=== PATIENT | female | born 1975 | race Caucasian/White ===

== ENCOUNTER 2018-05-20 15:58 | Outpatient (REF) | payer BC, SELFPAY ==
--- NOTE | 2018-05-20 15:30 | PAPFT_PTH ---
PATIENT: Sheryl Waldron LOC: [facility] U#:[id number] AGE/SX: 42/F ROOM: RE05/20/[address]: JOSIE Alas : 1975 BED: DIS: 05/20/2018 SPEC #: [id number] RECD: 05/20/18 18:17 STATUS: PETE RERyan #: [id number] MARIA G: 05/20/18 15:[address]: Arlene Farmer DEPT: [facility] Cytology RECD BY: Jina Gibson ENTERED: 05/20/18 18:17 SP TYPE: PAPFT OTHR DR: Lima Bella Tissues: 1 - CX/ENDOCX FOR PAP SMEARS Procedures: PAP THIN PREP/UVM Screening HPV DNA PROBE Comments: [id number]
== END 2018-05-20 16:18 ==
LOC: LBN 15:58
PROVIDERS: PCP Nurse Practitioner Family; Visit Provider Nurse Practitioner Family
DX: Z12.4 Encounter for screening for malignant neoplasm of cervix (principal); Z11.51 Encounter for screening for human papillomavirus (HPV)
CPT/HCPCS: 88142; 87624

== ENCOUNTER 2018-06-10 00:49 | Outpatient (CLI) | payer BC, SELFPAY ==
--- NOTE | 2018-06-10 08:30 | DI.MAMMO_ITS ---
SYMPTOM/DIAGNOSIS: SCREENING, Z12.31 MAMMOGRAMS: Mammograms were interpreted according to the usual protocol including computer analysis with CAD system, tomosynthesis and C view imaging. Comparison is made with prior examinations. Breast density, Category B. No suspicious masses or microcalcifications are seen. There is no definite evidence of malignancy. IMPRESSION: Negative mammogram. Routine screening is recommended. Category 1B. MQSA ASSESSMENT OF FINDINGS: Negative. Category 1. Patient will receive a letter notifying them of these results. BI-RADS category B. There are scattered areas of fibroglandular density.
== END 2018-06-10 01:09 ==
PROVIDERS: PCP Nurse Practitioner Family; Visit Provider Nurse Practitioner Family
DX: Z12.31 Encounter for screening mammogram for malignant neoplasm of breast (principal)
CPT/HCPCS: 77063; 77067

== ENCOUNTER 2019-08-21 14:21 | Emergency (ER) | payer BC, SELFPAY ==
[2019-08-21 14:29] VITALS: BP 118/69; PULSE 79; RESP 20; TEMP 36.8; O2SAT 96
[2019-08-21] MEDS: Balanced Salt Solution 15 ML BTL OP (14:57)
[2019-08-21] MEDS: Fluorescein STRIPS 100/BOX 1 MG OP (14:57)
--- NOTE | 2019-08-21 15:12 | W.ED.GENAD ---
Discharge Plan Disposition Patient Disposition: HOME Discharge Details Chief Complaint: EyeProblem Clinical Impression: Acute conjunctivitis of left eye Primary Care Provider: Lima Bella ED Provider: Marcio Encarnacion Home Meds and New Rx's Prescriptions: New erythromycin 5 mg/gram (0.5 %) ointment 0.5 inch OP QID Qty: 3.5 RF: 0 Continued clotrimazole-betamethasone [Lotrisone] 45 GM cream 15 gm Topical BID Qty: 1 RF: 0 acyclovir [Zovirax] 2 GM cream 2 gm Topical PRN RF: 0 valacyclovir [Valtrex] 500 MG tablet 500 mg PO DAILY RF: 0 citalopram [Celexa] 10 MG tablet 10 mg PO DAILY RF: 0 esomeprazole magnesium [Nexium] 20 MG capsule,delayed release(DR/EC) 20 mg PO DAILY RF: 0 trazodone 50 MG tablet 2 tab PO PRN PRNRF: 0 buspirone 5 MG tablet 5 mg PO DAILY RF: 0 naltrexone 50 MG tablet 50 mg PO DAILY RF: 0 Discharge Instructions Instructions: Conjunctivitis (ED) Additional Instructions: Apply erythromycin eye ointment to left eye: Apply 0.5 inch to left inner lower lid, 4 times a day, for the next 1 week. Please contact your quality assurance coach to arrange follow-up. Call tomorrow to be seen in follow-up early this week. Return to the ER immediately for any worsening or new concerning symptoms. Referrals: [facility] [Provider Group] Medical Decision Making 43-year-old female here with conjunctivitis left eye. Patient does have a history of chronic intermittent HSV and is currently on Valtrex for oral lesion on her lip. 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 No dendritic lesions noted on exam. I will have her continue taking Valtrex and follow-up with ophthalmology. Suspect more likely infectious process versus allergic etiology. I will cover with erythromycin ointment. I discussed my differential diagnosis with the patient and recommended that she follow-up with her quality assurance coach tomorrow. I encouraged to return immediately should she have any worsening or new concerning symptoms. HPI General Mode of arrival: ambulatory. Date/Time Provider Initiated Documentation: 08/21/19 14:30. Limitations to Documentation: no limitations. Information obtained by: patient. HPI Narrative: 43-year-old female presents with chief complaint of eye discomfort. Discomfort is is in her left eye, superior slightly lateral eye. Patient notes she was outside with her dog yesterday playing but does not recall any traumatic injury to her eye. Symptoms started yesterday afternoon and persisted through the evening. This morning she woke up with crusty discharge from her eye. She has no associated facial pain or rash. No visual changes. Patient notes she is currently taking Valtrex for HSV outbreak on her lip. She notes she has this chronic intermittently. Related Data Home Medications Medication Instructions Recorded Confirmed citalopram [Celexa] 10 mg PO DAILY 12/27/12 08/21/19 esomeprazole magnesium [Nexium] 20 mg PO DAILY 12/27/12 08/21/19 clotrimazole-betamethasone 15 gm TOPICAL BID #1 tube 06/10/13 08/21/19 [Lotrisone] acyclovir [Zovirax] 2 gm TOPICAL PRN script 07/08/13 08/21/19 valacyclovir [Valtrex] 500 mg PO DAILY tab-cap 07/08/13 08/21/19 trazodone 2 tab PO PRN PRN 08/19/15 08/21/19 buspirone 5 mg PO DAILY 07/21/17 08/21/19 naltrexone 50 mg PO DAILY 07/21/17 08/21/19 erythromycin 0.5 inch OP QID #3.5 gm 08/21/19 Previous Rx's Medication Instructions Recorded erythromycin 0.5 inch OP QID #3.5 gm 08/21/19 Allergies Allergy/AdvReac Type Severity Reaction Status Date / Time Sulfa (Sulfonamide Allergy Intermediate Hives Verified 08/21/19 14:32 Antibiotics) General Stated Complaint: EyeProblem PHILIP: 4 Review of Systems Constitutional Constitutional: Denies fever(s) Eyes Eyes: Reports as per HPI, Denies blurry vision and Denies itchy eyes Integumentary/Breasts Skin/Breast: Denies rash Allergic/Immunologic Allergic/Immunologic: Denies itchy eyes PFSH Surgical History section Family History Father Heart disease Mother Hypertension Hyperlipidemia Osteoporosis Maternal Aunt Breast cancer 3 maternal aunts Maternal Aunt Ovarian cancer Mat Great aunt Paternal Grandfather Colon cancer Social History Smoking/Tobacco Use Status: Never Alcohol Intake: current Alcohol Intake frequency: holidays/special occasions only Drug use: Never Substance use type: does not use Do you feel safe at home: Yes Do you feel safe in your relationship?: Yes Female Reproductive History Menstrual control method: none History History 2 Para 1 Hx # Term Pregnancies Multiple births Hx # Pregnancies Ectopic pregnancies AB induced Hx Number of Living Children AB spontaneous Exam Const General: cooperative and no acute distress HENMT Mouth: moist mucous membranes Eyes Alignment and Position: alignment normal Periorbital: periorbital findings normal Eyelids: eyelids normal Conjunctivae: conjunctival abnormality left conjunctival chemosis and conjunctival injection; without discharge Sclera: normal sclerae Cornea: corneas normal and fluorescein used Pupils: PERRL EOM: EOM intact bilaterally Neck Neck: trachea midline and supple Skin General skin exam: no rashes or lesions noted Neuro General: patient alert, patient awake and tone normal Course Vital Signs Vital signs: Vital Signs Temperature 36.8 C 08/21/19 14:29 Pulse 79 08/21/19 14:29 Respiratory Rate 20 08/21/19 14:29 Blood Pressure 118/69 08/21/19 14:29 Pulse Oximetry 96 08/21/19 14:29 Temperature 36.8 C 08/21/19 14:29 Temperature Source Skin 08/21/19 14:29 Pulse 79 08/21/19 14:29 Respiratory Rate 20 08/21/19 14:29 Respiratory Effort Non-Labored 08/21/19 14:34 Blood Pressure 118/69 08/21/19 14:29 Blood Pressure Position Sitting 08/21/19 14:29 Pulse Oximetry 96 08/21/19 14:29 Oxygen Delivery Method Room Air 08/21/19 14:29 Oxygen Flow Rate 0 08/21/19 14:29 Pain Level 6 08/21/19 14:29
[2019-08-21] MEDS: Erythromycin Ophth Oint 3.5 GM TUBE OP (15:23)
[2019-08-21 15:25] VITALS: BP 118/69; PULSE 79; RESP 20; TEMP 36.8; O2SAT 96
== END 2019-08-21 15:26 | disposition home or self-care (01) ==
PROVIDERS: Emergency Provider Student in an Organized Health Care Education/Training Program
DX: H10.022 Other mucopurulent conjunctivitis, left eye (principal)
CPT/HCPCS: 99283

== ENCOUNTER 2019-12-06 16:03 | Observation (INO) | payer BC, SELFPAY ==
[2019-12-06] VITALS (40 sets, daily range): BP systolic 103–135; BP diastolic 60–99; PULSE 65–168; RESP 13–23; TEMP 36.8–37.1; O2SAT 97–100
--- NOTE | 2019-12-06 16:51 | DI.CT_ITS ---
EXAM: CT THORAX ABD/PEL CTA CLINICAL HISTORY: pain in chest and back. TECHNIQUE: Imaging Protocol: Axial CT angiography was performed with multi-slice acquisition and m ulti-planar and/or 3D reconstructions. CONTRAST MATERIAL: Intravenous: Omnipaque 350 Contrast volume:100 mL Oral: No COMPARISON: CT CTA CHEST AND ABD WITHOUT AND WITH from 10/01/2017 FINDINGS: CHEST: Pulmonary Arteries: No evidence of filling defect to suggest pulmonary emboli. However, the study was not tailored to evaluate the pulmonary arteries. Tracheobronchial tree: Patent where visualized. Mediastinum and [place]: No dominant adenopathy or fluid collection. Small hiatal hernia. Pulmonary parenchyma: No consolidation or dominant measurable mass. No architectural distortion. Pleura: No effusion or pneumothorax. Heart: The heart is not dilated. No coronary artery calcifications are seen. No pericardial effusion. Aorta: Thoracic aorta non-dilated. No aneurysm or dissection. Bones: Degenerative changes seen in the thoracic spine.No acute abnormality. ABDOMEN AND PELVIS: Abdomen: Celiac [place]/SMA: No evidence of occlusion or significant stenosis. Renal Arteries: No evidence of occlusion or significant stenosis. There is a single renal artery per fusing each kidney. Aorta: No aneurysm. No dissection. No evidence of occlusion or significant stenosis. Pelvis: Iliac Arteries: No evidence of occlusion or significant stenosis. Common Femoral Arteries: No evidence of occlusion or significant stenosis. ABDOMEN: Liver: Normal density. No measurable mass. Portal, Superior Mesenteric, and Splenic Veins: Unremarkable. Gallbladder and Biliary Tract: No radiodense calculus or dilation. Pancreas: Normal density, no abnormal calcifications or inflammatory process. Spleen: Normal. Adrenals: No masses seen. Kidneys: Normal size, contour and axis. No radiodense stones or obstructive uropathy. No masses seen. Bowel: No obstruction or bowel wall thickening. Appendix is unremarkable. Colonic diverticulosis but no evidence of acute diverticulitis. Peritoneal Cavity: No ascites, collection or mesenteric inflammatory response. Lymph Nodes: Within normal limits. Bones: Degenerative changes seen in the lumbar spine. Soft Tissues: Unremarkable. PELVIS: Bladder: Symmetric distention, no gross wall thickening. Reproductive Organs: Unremarkable as visualized. Lymph Nodes: Within normal limits. Bones: Degenerative changes seen in the lumbar spine. No acute abnormality. IMPRESSION: Normal CT Angiogram of the chest, abdomen and pelvis. RADIATION DOSE DELIVERED: Total DLP DATA REPOSITORY: All CT scans at this facility are submitted to the National Radiology Data Registry (NRDR) Dose Index Registry (DIR) with the [employer] (ACR). RADIATION OPTIMIZATION: All CT scans at this facility use at least one of these dose optimization te chniques: automated exposure control; mA and/or kV adjustment per patient size (includes targeted exa ms where dose is matched to clinical indication); or iterative reconstruction.
--- NOTE | 2019-12-06 16:52 | ED.GENADUL_ITS ---
Discharge Plan Disposition Condition: Good Discharge Details Chief Complaint: Chest Pain Admit Date/Time: 12/06/19 19:40 Admit Provider: Gonzalo Vargas Attending Provider: Gonzalo Vargas Primary Care Provider: Mahesh Sanford ED Provider: Marcio Encarnacion Discharge Instructions Activity:: Activity as Tolerated Equipment/Supplies:: No Equipment Needed Diet:: As Tolerated Discharge Orders Discharge Orders: Discharge Order (Routine); Ordered 12/07/19 Ordered By: James Mae Discharge Data Discharge Date/Time-TO BE ENTERED AT DEPARTURE: 12/06/19 20:10 Medical Decision Making 1655??44-year-old female here with episode of chest pain that occurred about 1 hour ago and now resolved. She does have persistent upper back pain. Consider ACS. Screening ECG was reviewed and interpreted by me: Sinus rhythm 73 bpm, normal axis, no STEMI, nondiagnostic. Plan to check troponin. Consider acute life-threatening thoracic aortic dissection. Plan to obtain CTA of the chest. Plan to observe patient closely and maintain cardiac monitoring. 19:00 --CTA chest was interpreted by radiology: IMPRESSION: No acute findings CT of the abdomen and pelvis was interpreted by radiology: IMPRESSION: Unremarkable CTA. Initial troponin negative. Patient was reassessed and she continues to have i ntermittent brief less than 1 minute episodes of substernal chest discomfort that radiates to her back. Given family history, obesity, and continued symptoms, plan will be to hospitalize for repeat labs and cardiac monitoring overnight. HPI General Mode of arrival: ambulatory . Date/Time Provider Initiated Documentation: 12/06/19 16:31 . Limitations to Documentation: no limitations . Information obtained by: patient . HPI Narrative: 44-year-old female with history of anxiety and depression presents with chief complaint of chest pain. Patient notes that she developed a knot in her back yesterday which has persisted. She attributed this to overuse and musculoskeletal pain. Today about an hour ago, she developed sudden onset chest pain described as a sharp pressure and localized to retro-sternal and rated 9/10. Pain lasted approximately 10 minutes. Pain radiated into her left neck. Pain has since resolved. She continues to have discomfort in her left upper back. Patient also notes intermittent brief episodes of chest pain a few times a week over the past 1 to 2 months that occur at rest and last approximately 1 minute. Related Data Home Medications Medication Instructions Recorded Confirmed citalopram [Celexa] 10 mg PO DAILY 12/27/12 12/06/19 esomeprazole magnesium [Nexium] 20 mg PO DAILY 12/27/12 12/06/19 acyclovir [Zovirax] 2 gm TOPICAL PRN script 07/08/13 12/06/19 valacyclovir [Valtrex] 500 mg PO DAILY tab-cap 07/08/13 12/06/19 trazodone 2 tab PO PRN PRN 08/19/15 12/06/19 naltrexone 50 mg PO DAILY 07/21/17 12/06/19 methocarbamol 1,500 mg PO QID PRN #10 tab 12/07/19 Previous Rx's Medication Instructions Recorded methocarbamol 1,500 mg PO QID PRN #10 tab 12/07/19 Allergies Allergy/AdvReac Type Severity Reaction Status Date / Time Sulfa (Sulfonamide Allergy Intermediate Hives Verified 12/06/19 16:13 Antibiotics) General Stated Complaint: Chest Pain PHILIP: 2 Review of Systems All systems reviewed & are unremarkable except as noted in HPI and below Constitutional Constitutional: Denies fever(s) Cardiovascular Cardiovascular: Reports as per HPI and Denies dyspnea Respiratory Respiratory: Denies dyspnea PFSH Medical History History of alcoholism (Acute) History of depression (Acute) History of gastroesophageal reflux (GERD) (Acute) Surgical History Foot fracture, right (Acute) History of (Chronic) History of esophagogastroduodenoscopy (EGD) (Chronic) Status post colonoscopy (Acute) Family History Father Heart disease Mother Hypertension Hyperlipidemia Osteoporosis Maternal Aunt Breast cancer 3 maternal aunts Maternal Aunt Ovarian cancer Mat Great aunt Paternal Grandfather Colon cancer Social History Smoking/Tobacco Use Status: Former Tobacco Use Tobacco: How many years used: 12 Alcohol Intake: current Alcohol Intake frequency: a few times a week Details: Former history of alcoholism. Previously drank 2-3 bottles of wine per day Drug use: Never Substance use type: does not use Number of Children: 2 What is your relationship status?: Panel score (0-1 are the most socially isolated patients): 0 Do you feel safe at home: Yes Do you feel safe in your relationship?: Yes Additional Social history: she has one biological child (son) and one adopted child (disabled daughter) Female Reproductive History Menstrual control method: none History History 3 Para 1 Hx # Term Pregnancies 1 Multiple births Hx # Pregnancies Ectopic pregnancies AB induced Hx Number of Living Children 2 AB spontaneous 2 Exam Const General: cooperative HENMT Mouth: moist mucous membranes Eyes Conjunctivae: normal conjunctivae Sclera: normal sclerae Neck Neck: trachea midline and supple Resp Auscultation: clear to auscultation bilaterally, no rales, no rhonchi and no wheezes Cardio Jugular venous pressure: no JVD Rate: regular rate and not tachycardic Rhythm: regular rhythm GI Palpation: soft, not firm, no guarding, no masses, not rigid and nontender Skin General skin exam: no rashes or lesions noted Neuro General: patient alert, patient awake, patient oriented x3 and tone normal Extrem General: no edema Psych Appearance: grossly normal Mental Status: mental status grossly normal Course Vital Signs Vital signs: Vital Signs Temperature 36.8 C 12/06/19 16:09 Pulse 74 12/06/19 16:09 Respiratory Rate 16 12/06/19 16:09 Blood Pressure 126/68 12/06/19 16:09 Pulse Oximetry 100 12/06/19 16:09 Temperature 36.8 C 12/06/19 16:09 Temperature Source Temporal Artery Scan 12/06/19 16:09 Pulse 81 12/06/19 16:34 Pulse 79 12/06/19 16:34 Respiratory Rate 16 12/06/19 16:34 Respiratory Effort Non-Labored 12/06/19 16:12 Blood Pressure 117/89 12/06/19 16:34 Blood Pressure Mean 96 12/06/19 16:34 Blood Pressure Position Supine 12/06/19 16:09 Pulse Oximetry 98 12/06/19 16:34 Oxygen Delivery Method Room Air 12/06/19 16:09 Oxygen Flow Rate 0 12/06/19 16:09 Pain Level 0 12/06/19 16:09
[2019-12-06] MEDS: ALPRAZolam 0.25 MG TAB PO (16:57)
[2019-12-06 17:06] LABS: Abs Immature Grans 0.01 k/cumm (0.0-0.09); Absolute Basophil Count 0.02 k/cumm (0.0-0.2); Absolute Eosinophil Count 0.16 k/cumm (0.0-0.7); Absolute Lymphocyte Count 2.84 k/cumm (1.2-3.4); Absolute Monocyte Count 0.68 k/cumm (0.11-0.7); Absolute Neutrophil Count 3.58 k/cumm (1.2-6.7); Basophils % 0.3; Eosinophils % 2.2; HCT 40.5 % (36.0-46.0); HGB 13.4 g/dL (12.0-15.5); Immature Grans % 0.1 %; Mean Corp. HGB Concentration 33.1 g/dL (32.0-36.0); Mean Corpuscular Hemoglobin 30.3 pg (27.0-33.0); Mean Corpuscular Volume 91.6 fL (80-95); Mean Platelet Volume 9.8 fL (8.0-11.0); Monocytes % 9.3; Neutrophils % 49.1; Platelet Count 275 x1000/uL (130-400); RBC 4.42 m/cumm (4.00-5.20); RBC Distribution Width 14.3 % (11.7-14.6); White Blood Cell Count 7.29 k/cumm (4.4-10.8)
[2019-12-06 17:21] LABS: ALT 61 U/L (14-59); AST 73 U/L (15-37); Albumin 3.6 g/dL (3.4-5.0); Alkaline Phosphatase 69 U/L (46-116); Anion Gap 6.4 mmol/L (3-11); BUN 10 mg/dL (7-18); Bilirubin, Total 0.4 mg/dL (0.2-1.0); CO2 26.6 mmol/L (21.0-32.0); CREATININE 0.79 mg/dL (0.55-1.02); Calcium 8.6 mg/dL (8.5-10.1); Chloride 104 mmol/L (98-107); Glucose 91 mg/dL (74-106); Potassium 4.8 mmol/L (3.5-5.1); Sodium 137 mmol/L (136-145); Total Protein 7.2 g/dL (6.4-8.2)
[2019-12-06 17:22] LABS: Troponin I < 0.05 ng/mL (<0.06)
[2019-12-06] MEDS: Omnipaque 350 MG/ML 50 ML BTL 100 ML IJ (17:34)
[2019-12-06] MEDS: Normal Saline - Diluent 50 ML VIAL IV (17:35)
--- NOTE | 2019-12-06 18:20 | DI.VRAD_ITS ---
PROCEDURE INFORMATION: Exam: CT Angiography Chest With Contrast Exam date and time: 12/06/2019 5:38 PM Age: 44 years old Clinical indication: Chest pressure; Other: Chest pain TECHNIQUE: Imaging protocol: Computed tomographic angiography of the chest with intravenous contrast. 3D rendering: MIP and/or 3D reconstructed images were created by the technologist. Contrast material: [id number]; Contrast volume: 100 ml; Contrast route: INTRAVENOUS (IV); COMPARISON: CTA CHEST AND ABD WITHOUT AND WITH 10/01/2017 9:13 AM FINDINGS: Aorta: Unremarkable. No aortic aneurysm. No aortic dissection. Pulmonary arteries: No definite pulmonary emboli identified, as the study was not tailored to evaluate the pulmonary arteries. Lungs: Unremarkable. No consolidation. No masses. Pleural space: Unremarkable. No pneumothorax. No pleural effusion. Heart: Unremarkable. No cardiomegaly. No pericardial effusion. Lymph nodes: Unremarkable. No enlarged lymph nodes. Bones/joints: Unremarkable. No acute fracture. Soft tissues: Unremarkable. IMPRESSION: No acute findings. PROCEDURE INFORMATION: Exam: CT Angiography Abdomen and Pelvis With Contrast Exam date and time: 12/06/2019 5:38 PM Age: 44 years old Clinical indication: Chest pressure; Other: Chest pain TECHNIQUE: Imaging protocol: Computed tomographic angiography of the abdomen and pelvis with intravenous contrast material. 3D rendering: MIP and/or 3D reconstructed images were created by the technologist. Contrast material: [id number]; Contrast volume: 100 ml; Contrast route: INTRAVENOUS (IV); COMPARISON: CTA CHEST AND ABD WITHOUT AND WITH 10/01/2017 9:13 AM FINDINGS: Aorta: No aortic aneurysm. No aortic dissection. Celiac trunk and mesenteric arteries: No occlusion or significant stenosis. Renal arteries: No occlusion or significant stenosis. Right iliac arteries: No occlusion or significant stenosis. Left iliac arteries: No occlusion or significant stenosis. Liver: No mass. Gallbladder and bile ducts: Unremarkable. No calcified stones. No ductal dilation. Pancreas: Unremarkable. No mass. No ductal dilation. Spleen: Unremarkable. No splenomegaly. Adrenals: Unremarkable. No mass. Kidneys and ureters: Unremarkable. No solid mass. No hydronephrosis. Stomach and bowel: Unremarkable. No obstruction. No mucosal thickening. Appendix: No evidence of appendicitis. Intraperitoneal space: Unremarkable. No free air. No significant fluid collection. Lymph nodes: Unremarkable. No enlarged lymph nodes. Bladder: Unremarkable. No mass. Reproductive: Unremarkable as visualized. Bones/joints: No acute fracture. No dislocation. Soft tissues: Unremarkable. IMPRESSION: Unremarkable CTA. Dictated and Authenticated by: Karen Felder MD. Ordering:DI Buckley MD
--- NOTE | 2019-12-06 20:56 | W.PM.HP.N ---
Date of service: 12/06/19 Time of Service: 20:56 Assessment and Plan Assessment and plan (1) Atypical chest pain: Status: Acute Assessment and plan: Continue to cycle troponin levels and if all are negative proceed with gated exercise treadmill MPI study in the morning. Because of her BMI this may need to be a 2-day study to improve nuclear enhancement. I think a fall of her troponin levels are within normal limits study can be performed in the morning and finished as an outpatient. I think more likely her chest discomfort is anxiety related provoked by the stress of her father's recent passing due to heart disease and the stress of having to find a new school for her disabled daughter. She does not seem to have typical symptoms of GERD exacerbation such as water brash or dyspepsia and so far her GERD symptoms have been well controlled with taking her Nexium twice a day. (2) Cervicalgia: Status: Acute Assessment and plan: Musculoskeletal tenderness exacerbated by recent physical labor and redoing her wraparound porch. Will treat with muscle relaxants History of Present Illness History of Present Illness Chief Complaint: Chest pain Narrative: 44-year-old female with a history of depression and anxiety disorder, GERD, obesity presented to the emergency department with intermittent chest tightness and dyspnea for the last 2 weeks. Last night she went to bed and had some substernal chest tightness along with knot in her upper back which she attributed due to muscle tension and stress. She recently had been busy sanding and staining her wraparound deck. She is also been helping her mother since the patient's father recently from congestive heart failure. Patient admits she has been under a lot of increased stress with the recent of her father and also with news that her disabled daughter who attends a residential school in [place] is facing closure of her school. Today the patient had severe chest tightness that she rated a 9 out of 10 in discomfort began about an hour prior to arrival but resolved by the time she presented to the emergency department. Since that time she has been having intermittent mild substernal discomfort. EKG and CTA of her chest and troponin levels have all been negative. Patient is admitted on observation status for serial troponin levels and serial EKGs and for a nuclear myocardial perfusion imaging gated exercise treadmill stress test in the morning. Cardiac risk factors include a father who from congestive heart failure and presumably coronary artery disease at the age of 73. Patient herself is a former smoker but quit approximate 11 to 12 years ago after 11-year smoking history. Patient denies a personal history of diabetes mellitus hypertension or hyperlipidemia. No other family members with premature coronary artery disease. She has a healthy brother age 41 healthy sister age 30. Her mother is alive and age 73. Review of Systems All systems reviewed & are unremarkable except as noted in HPI and below PFSH Medical History (Updated 12/06/19 @ 22:15 by Gonzalo Vargas) History of alcoholism (Acute) History of depression (Acute) History of gastroesophageal reflux (GERD) (Acute) Surgical History (Updated 12/06/19 @ 22:04 by Gonzalo Vargas) Foot fracture, right (Acute) History of (Chronic) History of esophagogastroduodenoscopy (EGD) (Chronic) Status post colonoscopy (Acute) Family History Father Heart disease Mother Hypertension Hyperlipidemia Osteoporosis Maternal Aunt Breast cancer 3 maternal aunts Maternal Aunt Ovarian cancer Mat Great aunt Paternal Grandfather Colon cancer Social History (Updated 12/06/19 @ 22:11 by Gonzalo Vargas) Smoking/Tobacco Use Status: Former Tobacco Use Tobacco: How many years used: 12 Alcohol Intake: current Alcohol Intake frequency: a few times a week Details: Former history of alcoholism. Previously drank 2-3 bottles of wine per day Drug use: Never Substance use type: does not use Number of Children: 2 What is your relationship status?: Panel score (0-1 are the most socially isolated patients): 0 Do you feel safe at home: Yes Do you feel safe in your relationship?: Yes Additional Social history: she has one biological child (son) and one adopted child (disabled daughter) Female Reproductive History Menstrual control method: none History History 3 Para 1 Hx # Term Pregnancies 1 Multiple births Hx # Pregnancies Ectopic pregnancies AB induced Hx Number of Living Children 2 AB spontaneous 2 Meds Home Medications and Allergies Home Medications Medication Instructions Recorded Confirmed Type citalopram [Celexa] 10 mg PO DAILY 12/27/12 12/06/19 History esomeprazole magnesium [Nexium] 20 mg PO DAILY 12/27/12 12/06/19 History acyclovir [Zovirax] 2 gm TOPICAL PRN script 07/08/13 12/06/19 History valacyclovir [Valtrex] 500 mg PO DAILY tab-cap 07/08/13 12/06/19 History trazodone 2 tab PO PRN PRN 08/19/15 12/06/19 History naltrexone 50 mg PO DAILY 07/21/17 12/06/19 History Allergies Allergy/AdvReac Type Severity Reaction Status Date / Time Sulfa (Sulfonamide Allergy Intermediate Hives Verified 12/06/19 16:13 Antibiotics) Exam Narrative Exam Narrative: Pleasant middle-aged redhaired female who is sitting up in the bed eating dinner and watching TV. She is alert and oriented person place time circumstance. HEENT is remarkable for glasses Neck is supple nontender, no JVD, no thyromegaly, no cervical lymphadenopathy, normal carotid pulses Lungs are clear to auscultation. Heart is regular rate and rhythm without murmur rub or gallop. Chest wall is mildly tender over the sternum and parasternal ribs Abdomen is obese but soft and nontender with normal active bowel sounds no palpable masses no bruits. Neck and back are slightly tender over the cervical paraspinal musculature. But normal range of motion. No flank tenderness. Extremities with normal range of motion and strength without peripheral cyanosis or edema and no calf tenderness or swelling. Neurologic exam grossly intact with no focal motor or sensory deficits. Genitalia rectal and breast exam deferred Results Imaging Abdomen CT scan report/results: report reviewed CT scan - chest: report reviewed EKG: image reviewed Labs Result diagrams: 12/06/19 16:28 12/06/19 16:28 Labs: Laboratory Results - last 24 hr 12/06/19 12/06/19 16:28 16:28 WBC 7.29 RBC 4.42 Hgb 13.4 Hct 40.5 MCV 91.6 MCH 30.3 MCHC 33.1 RDW 14.3 Plt Count 275 MPV 9.8 Immature Gran % 0.1 Neutrophils % 49.1 Lymphocytes % 39.0 Monocytes % 9.3 Eosinophils % 2.2 Basophils % 0.3 Absolute Neutrophils 3.58 Absolute Lymphocytes 2.84 Absolute Monocytes 0.68 Absolute Eosinophils 0.16 Absolute Basophils 0.02 Sodium 137 Potassium 4.8 Chloride 104 Carbon Dioxide 26.6 Anion Gap 6.4 BUN 10 Creatinine 0.79 Estimated GFR/1.73 m2 >= 60.00 Glucose 91 Calcium 8.6 Total Bilirubin 0.4 AST 73 H ALT 61 H Alkaline Phosphatase 69 Troponin I < 0.05 Total Protein 7.2 Albumin 3.6 Last Vital Signs Temp 37.1 C 12/06/19 20:40 Pulse 68 12/06/19 20:40 Resp 18 12/06/19 20:40 BP 135/78 12/06/19 20:40 Pulse Ox 99 12/06/19 20:40 COVID-19 Screening In the past 14 days, have you traveled outside of [place]?: NO Had IN PERSON contact w/suspected or confirmed C-19 person: No
[2019-12-06 21:15] LABS: Magnesium 2.1 mg/dL (1.8-2.4)
[2019-12-06 21:47] LABS: Troponin I < 0.05 ng/mL (<0.06)
[2019-12-06] MEDS: Enoxaparin 40 MG/0.4 ML SYR SC (22:02)
[2019-12-06] MEDS: Esomeprazole 20 MG CAPCR PO (22:02)
[2019-12-06] MEDS: traZODone 50 MG TAB 100 MG PO (22:02)
[2019-12-06] MEDS: Methocarbamol 750 MG TAB 1500 MG PO (22:27)
[2019-12-07 00:15] VITALS: BP 111/74; PULSE 70; RESP 18; TEMP 36.8; O2SAT 96
[2019-12-07 00:38] LABS: Troponin I < 0.05 ng/mL (<0.06)
[2019-12-07 06:33] LABS: Calculated LDL 86 mg/dL (<100); Cholesterol 169 mg/dL (<200); HDL Cholesterol 61 mg/dL (40-60); Triglyceride 111 mg/dL (<150)
[2019-12-07 06:38] LABS: Hemoglobin A1C 5.3 % (3.8-5.6)
[2019-12-07 07:49] VITALS: BP 127/75; PULSE 72; RESP 19; TEMP 36.5; O2SAT 96
[2019-12-07] MEDS: Esomeprazole 20 MG CAPCR PO (08:50)
[2019-12-07] MEDS: valACYclovir 500 MG TAB PO (08:50)
[2019-12-07] MEDS: Citalopram 10 MG TAB PO (08:50)
--- NOTE | 2019-12-07 08:52 | INITIAL_ITS ---
- If Service Date Differs Date of service: 12/07/19 Time of Service: 08:52 Care Management Initial Assess REASON FOR HOSPITALIZATION:: Atypical chest pain PAST MEDICAL HISTORY/PAST SURGICAL HISTORY:: Medical History (Updated 12/06/19 @ 22:15 by Gonzalo Vargas). History of alcoholism (Acute). History of depression (Acute). History of gastroesophageal reflux (GERD) (Acute). Surgical History (Updated 12/06/19 @ 22:04 by Gonzalo Vargas). Foot fracture, right (Acute). History of (Chronic). History of esophagogastroduodenoscopy (EGD) (Chronic). Status post colonoscopy (Acute) PREVIOUS FUNCTIONAL STATUS/SOCIAL/FAMILY SUPPORTS:: Sheryl lives in housing provided by [facility]. 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 She lives in a house with her 10 year old son and 5 student s. Sheryl also has an 8 year old daughter who lives in a residential facility. Sheryl is independent with ADLs and all care and does not receive any community services. She identifies her good friends as her main support system. CURRENT FUNCTIONAL STATUS:: Sheryl was sitting up in bed when CM met with her. She was very pleasant and readily engaged with CM. Sheryl shared that she has an 8 year old daughter who is disabled and she has just learned that her school will be closing and she needs to find placement for her. Sheryl stated that she feels that is conbtributing to her anxiety and chest pain. She did share that her vchest pain has resolved but that she is having some back pain. ADVANCE DIRECTIVES:: None on file Has patient been provided with info about the portal/API?: Yes Did the patient sign up for the portal?: No (previously) CODE STATUS:: Full Code INSURANCE COVERAGE / FINANCIAL ISSUES:: [employer] CURRENT HOME/COMMUNITY SERVICES/EQUIPMENT:: none PRIMARY CARE PHYSICIAN:: Mahesh Sanford POTENTIAL DISCHARGE NEEDS:: Follow up with cardiology and PCP PATIENT/FAMILY EDUCATION NEEDS:: Discharge plan, follow up plan, limitations, Ask Me Three TRANSPORTATION:: via private vehicle PLAN:: Sheryl will be discharged home with no new services. She will be scheduled for a stress test tomorrow and will follow up with her PCP and discharge plan of care. Sheryl will transport via private vehicle with a friend.
--- NOTE | 2019-12-07 10:12 | W.PM.DS.N ---
Date of service: 12/07/19 Time of Service: 10:13 DS: Diagnosis Discharge Diagnosis (1) Atypical chest pain: Status: Acute (2) Cervicalgia: Status: Acute Discharge Plan Disposition Patient Disposition: HOME Condition: Good Discharge Details Chief Complaint: Chest Pain Reason For Visit: CHEST PAIN Admit Date/Time: 12/06/19 19:40 Admit Provider: Gonzalo Vargas Attending Provider: Gonzalo Vargas Primary Care Provider: Mahesh Sanford ED Provider: Marcio Encarnacion Hospital Course Hospital Course: This is a 44-year-old female with a history of depression and anxiety disorder, GERD, obesity presented to the emergency department with intermittent chest tightness and dyspnea for the last 2 weeks. Last night she went to bed and had some substernal chest tightness along with knot in her upper back which she attributed due to muscle tension and stress. She recently had been busy sanding and staining her wraparound deck. She is also been helping her mother since the patient's father recently from congestive heart failure. Patient admits she has been under a lot of increased stress with the recent of her father and also with news that her disabled daughter who attends a residential school in [place] is facing closure of her school. Today the patient had severe chest tightness that she rated a 9 out of 10 in discomfort began about an hour prior to arrival but resolved by the time she presented to the emergency department. Since that time she has been having intermittent mild substernal discomfort. EKG and CTA of her chest and troponin levels have all been negative. Patient was admitted on observation status for serial troponin levels and serial EKGs and for a nuclear myocardial perfusion imaging gated stress testing. Cardiac risk factors include a father who from congestive heart failure and presumably coronary artery disease at the age of 73. Patient herself is a former smoker but quit approximate 11 to 12 years ago after 11-year smoking history. Patient denies a personal history of diabetes mellitus hypertension or hyperlipidemia. No other family members with premature coronary artery disease. She has a healthy brother age 41 healthy sister age 30. Her mother is alive and age 73. Troponin x 2 negative. EKG w/o evidence of ischemia. Robaxin was helpful with her back pain and will d/c with a prescription. The cardiac stress testing could not be performed the day after d/c so it will be scheduled the day following d/c on 12/08/2019 as an outpt. Home Meds and New Rx's Prescriptions: New methocarbamol 750 mg Tablet 1,500 mg PO QID PRN Qty: 10 RF: 0 Continued acyclovir [Zovirax] 2 GM cream 2 gm Topical PRN RF: 0 valacyclovir [Valtrex] 500 MG tablet 500 mg PO DAILY RF: 0 citalopram [Celexa] 10 MG tablet 10 mg PO DAILY RF: 0 esomeprazole magnesium [Nexium] 20 MG capsule,delayed release(DR/EC) 20 mg PO DAILY RF: 0 trazodone 50 MG tablet 2 tab PO PRN PRNRF: 0 naltrexone 50 MG tablet 50 mg PO DAILY RF: 0 Discharge Instructions Activity:: Activity as Tolerated Equipment/Supplies:: No Equipment Needed Diet:: As Tolerated Discharge Orders Discharge Orders: Discharge Order (Routine); Ordered 12/07/19 Ordered By: James Mae Other Ambulatory Orders: Nuclear Medicine Stress Test (Outpt) (ONCE) Location: None Selected Ordered By: James Mae DS: Summary Status at Discharge Functional status at discharge: independent ambulation Overall status at discharge: patient is back to baseline Mental Status: mental status grossly normal Speech and Movement: speech and movement normal Mood: congruent mood Affect: normal affect Exam Const General: cooperative and comfortable Nutritional Appearance: obese Orientation: alert and oriented x3 Resp Effort & Inspection: normal respiratory effort Auscultation: clear to auscultation bilaterally Cardio Rate: regular rate Rhythm: regular rhythm Heart Sounds: S1 normal and S2 normal GI Inspection: normal to inspection Palpation: soft Extrem General: normal to inspection and no clubbing, cyanosis or edema Psych Appearance: grossly normal Mental Status: mental status grossly normal Speech and Movement: speech and movement normal Mood: congruent mood Affect: normal affect DS: Data Vitals/I&O Vitals and I&O: Vital Signs Temperature 36.5 C 12/07/19 07:49 Temperature Source Temporal Artery Scan 12/07/19 07:49 Pulse 72 12/07/19 07:49 Pulse Rhythm Regular 12/07/19 07:08 Pulse 75 12/06/19 20:00 Respiratory Rate 19 12/07/19 07:49 Respiratory Effort 12/07/19 07:08 Respiratory Depth Normal 12/07/19 07:08 Respiratory Pattern Normal 12/07/19 07:08 Blood Pressure 127/75 07/01/20 07:49 Blood Pressure Mean 78 12/06/19 19:46 Blood Pressure Position Supine 12/06/19 16:09 Pulse Oximetry 96 12/07/19 07:49 Oxygen Delivery Method Room Air 12/07/19 07:49 Oxygen Flow Rate 0 12/07/19 07:49 Pain Level 0 12/07/19 07:49 Intake & Output 12/06/19 12/06/19 12/07/19 11:59 23:59 11:59 Intake Total 910 / 910 450 / 450 Output Total 350 / 350 1400 / 1400 Balance 560 / 560 -950 / -950 Weight 127.006 kg 125.5 kg Intake: IV Oral 900 / 900 450 / 450 Output: Urine 350 / 350 1400 / 1400 Other: Urine Color Straw Straw Urine Appearance Clear Clear Urine Odor Normal None Comment Void x1 in the toilet. Voiding Methods Toilet Toilet Data Completed and Pending Labs on day of discharge: Labs from last 24 hours 12/07/19 12/07/19 12/07/19 10:00 06:11 06:11 WBC RBC Hgb Hct MCV MCH MCHC RDW Plt Count MPV Immature Gran % Neutrophils % Lymphocytes % Monocytes % Eosinophils % Basophils % Absolute Neutrophils Absolute Lymphocytes Absolute Monocytes Absolute Eosinophils Absolute Basophils Sodium Pending Potassium Pending Chloride Pending Carbon Dioxide Pending Anion Gap Pending BUN Pending Creatinine Pending Estimated GFR/1.73 m2 Pending Glucose Pending Hemoglobin A1c 5.3 Calcium Pending Magnesium Total Bilirubin AST ALT Alkaline Phosphatase Troponin I Total Protein Albumin Triglycerides 111 Total Cholesterol 169 LDL Cholesterol, Calc 86 HDL Cholesterol 61 COVID-19 PCR Nasopharyn COVID-19 PCR Ref Test Perform Site 12/07/19 12/06/19 12/06/19 00:00 21:25 20:14 WBC RBC Hgb Hct MCV MCH MCHC RDW Plt Count MPV Immature Gran % Neutrophils % Lymphocytes % Monocytes % Eosinophils % Basophils % Absolute Neutrophils Absolute Lymphocytes Absolute Monocytes Absolute Eosinophils Absolute Basophils Sodium Potassium Chloride Carbon Dioxide Anion Gap BUN Creatinine Estimated GFR/1.73 m2 Glucose Hemoglobin A1c Calcium Magnesium Total Bilirubin AST ALT Alkaline Phosphatase Troponin I < 0.05 < 0.05 Total Protein Albumin Triglycerides Total Cholesterol LDL Cholesterol, Calc HDL Cholesterol COVID-19 PCR Pending Nasopharyn COVID-19 PCR Pending Ref Test Perform Site Pending 12/06/19 12/06/19 12/06/19 16:28 16:28 16:28 WBC 7.29 RBC 4.42 Hgb 13.4 Hct 40.5 MCV 91.6 MCH 30.3 MCHC 33.1 RDW 14.3 Plt Count 275 MPV 9.8 Immature Gran % 0.1 Neutrophils % 49.1 Lymphocytes % 39.0 Monocytes % 9.3 Eosinophils % 2.2 Basophils % 0.3 Absolute Neutrophils 3.58 Absolute Lymphocytes 2.84 Absolute Monocytes 0.68 Absolute Eosinophils 0.16 Absolute Basophils 0.02 Sodium 137 Potassium 4.8 Chloride 104 Carbon Dioxide 26.6 Anion Gap 6.4 BUN 10 Creatinine 0.79 Estimated GFR/1.73 m2 >= 60.00 Glucose 91 Hemoglobin A1c Calcium 8.6 Magnesium 2.1 Total Bilirubin 0.4 AST 73 H ALT 61 H Alkaline Phosphatase 69 Troponin I < 0.05 Total Protein 7.2 Albumin 3.6 Triglycerides Total Cholesterol LDL Cholesterol, Calc HDL Cholesterol COVID-19 PCR Nasopharyn COVID-19 PCR Ref Test Perform Site [facility] Medical History History of alcoholism (Acute) History of depression (Acute) History of gastroesophageal reflux (GERD) (Acute) Surgical History Foot fracture, right (Acute) History of (Chronic) History of esophagogastroduodenoscopy (EGD) (Chronic) Status post colonoscopy (Acute) Family History Father Heart disease Mother Hypertension Hyperlipidemia Osteoporosis Maternal Aunt Breast cancer 3 maternal aunts Maternal Aunt Ovarian cancer Mat Great aunt Paternal Grandfather Colon cancer Social History Smoking/Tobacco Use Status: Former Tobacco Use Tobacco: How many years used: 12 Alcohol Intake: current Alcohol Intake frequency: a few times a week Details: Former history of alcoholism. Previously drank 2-3 bottles of wine per day Drug use: Never Substance use type: does not use Number of Children: 2 What is your relationship status?: Panel score (0-1 are the most socially isolated patients): 0 Do you feel safe at home: Yes Do you feel safe in your relationship?: Yes Additional Social history: she has one biological child (son) and one adopted child (disabled daughter) Female Reproductive History Menstrual control method: none History History 3 Para 1 Hx # Term Pregnancies 1 Multiple births Hx # Pregnancies Ectopic pregnancies AB induced Hx Number of Living Children 2 AB spontaneous 2
[2019-12-07 10:40] LABS: Anion Gap 7.8 mmol/L (3-11); BUN 10 mg/dL (7-18); CO2 25.2 mmol/L (21.0-32.0); CREATININE 0.81 mg/dL (0.55-1.02); Calcium 8.8 mg/dL (8.5-10.1); Chloride 104 mmol/L (98-107); Glucose 119 mg/dL (74-106); Potassium 3.8 mmol/L (3.5-5.1); Sodium 137 mmol/L (136-145)
[2019-12-07] MEDS: Methocarbamol 750 MG TAB 1500 MG PO (10:44)
[2019-12-07 11:32] VITALS: BP 126/83; PULSE 70; RESP 18; TEMP 36.8; O2SAT 97
--- NOTE | 2019-12-07 13:35 | PDOC.CMDIS ---
- If Service Date Differs Date of service: 12/07/19 Time of Service: 13:35 LACE Index Scoring Tool - Questions: Length of Stay (in days): 1 Acuity (Admit via E.D.?): Yes E.D. Visits: 2 - Answers: Total Score: 6 Risk of Readmission: Low Risk Care Management Discharge Reason for Hospitalization: Atypical chest pain Discharge Plan: Sheryl will be discharged home with no new services. She will be scheduled for a stress test tomorrow and will follow up with her PCP and discharge plan of care. Sheryl will transport via private vehicle with a friend. Patient/Family Education Needs: Discharge plan, follow up plan, limitations, Ask Me Three
[2019-12-07 22:39] LABS: COVID-19 RT-PCR UVMMC Result Negative (Negative)
== END 2019-12-07 13:04 | disposition home or self-care (01) ==
LOC: ER 20:05 → MS 20:18
PROVIDERS: Family Medicine; Admitting Provider Internal Medicine; Emergency Provider Student in an Organized Health Care Education/Training Program; PCP Family Medicine; Visit Provider Internal Medicine
DX: R07.89 Other chest pain (principal); R06.09 Other forms of dyspnea; F41.9 Anxiety disorder, unspecified; F32.9 Major depressive disorder, single episode, unspecified; M54.6 Pain in thoracic spine; Z79.899 Other long term (current) drug therapy; Z82.49 Family history of ischemic heart disease and other diseases of the circulatory system; K21.9 Gastro-esophageal reflux disease without esophagitis; E66.9 Obesity, unspecified; Z68.42 Body mass index [BMI] 45.0-49.9, adult; Z87.891 Personal history of nicotine dependence; M54.2 Cervicalgia
CPT/HCPCS: 36415; 74177; 80048; 80053; 80061; 93005; 99217; 99219; 99285; J1650; U0003; 83036; 83735; 84484; 85025; 93010; Q9967

== ENCOUNTER 2019-12-08 00:44 | Outpatient (CLI) | payer BC, SELFPAY ==
--- NOTE | 2019-12-08 10:30 | DI.NM_ITS ---
APPROVED REPORT Exam: Exercise Treadmill Patient Location: Out-Patient Room/Bed: Stress Nurse: Mena An RN BMI: 47.19 Baseline Rhythm: Sinus Rhythm Indications: Patient testing today for further risk stratification. Patient presented to the ED on with midsternal ???squeezing??? (02/15) chest pain, a ???knot in her upper back between [her] shoulder blades??? and discomfort in the left side of her neck. In the ED her EKG and CTA were negati ve and her troponins were negative. She states she has been under a lot of stress with her father pas sing away recently and also cares for her very busy disabled daughter. She reports she has had interm ittent chest pressure since her visit to the ED. Of Note, patient reports she was told as a teenager she had a leaky heart valve. Medical History Medical History: Anxiety, Depression, GERD, Obesity. Cardiac Medications: Patient does not take any cardiac medications. Allergies: Sulfonamide Antibiotics Cardiac Risk Factors: FHX of CAD, Asthma. Previous Cardiac Procedures: None Pretest Chest Pain Characteristics: None Exercise History: Physically active Physical Disabilities: None Lung Sounds: Clear to auscultation Heart Sounds: Regular Stress Test Details Test: Exercise stress testing was performed using a Ariel protocol. Nuclear Acquisition: Rest Tc-99m/Stress Tc-99m 1 day Rest Isotope: Tc-99m Sestamibi. Dose: 15.0 Date: 12/08/2019 Injection Time: 1100 Stress Isotope: Tc-99m Sestamibi. Dose: 46.0 Date: 12/08/2019 Injection Time: 1320 HR Resting HR Supine: 62 bpm Max Heart Rate (APMHR): 174 bpm Resting HR Standin bpm Target HR (85% APMHR): 147 bpm Max HR Achieved: 160 bpm % of APMHR: 91 Comment: At approximately 5 minutes of exercise patient's heart rate was 138 bpm then her heart rate dropped by 10 points to a heart rate of 126 bpm for at least one minute before trending upwards into the 140's and 150's. BP Resting BP Supine: 134/68 mmHg Resting BP Standin/70 mmHg Max BP: 162/60 mmHg BP response to stress: Normal blood pressure response to stress. ECG Resting ECG: Sinus Rhythm Stress ECG: Sinus Tachycardia ST Change: Normal Arrhythmia: None Recovery ECG: Sinus Rhythm Recovery ST Change: Normal Recovery Arrhythmia: None Clinical Reason for Termination: Fatigue, Dyspnea Stress Symptoms: None reported per patient. Exercise duration: 9 min2 sec Highest Stage Reached: Stage 4: 4.2 mph at 16% grade. Exercise capacity: 10.19 METs Functional Capacity: Above average capacity Stress ECG Conclusion 1. Patient exercised for 9 minutes (10 METS) 2. There are no symptoms suggestive of ischemia. 3. There is no evidence of ischemia on the ECG portion exam. Stress Test Summary STAGE Time (mins) Speed (mph) Grade (%) HR BP SYMPTOMS METS Supine 62 134/68 Standing 68 128/70 1 3 1.7 10 122 144/68 4.6 2 6 2.5 12 128 154/62 7 3 9 3.4 14 158 10.2 1 min recovery 125 162/60 3 min recovery 95 156/62 6 min recovery 88 142/66 9 min recovery 86 136/68 MPI Conclusion Ejection fraction with stress was 53%. There were no wall motion abnormalities. There was no evidence of ischemia on the imaging portion of the exam. This represents a normal SPECT stress test. Radiologist Interpretation Radiologist Interpretation by: Baldemar Dickerson MD Interpretation Date/Time: 12/08/2019 16:01:10
== END 2019-12-08 01:04 ==
PROVIDERS: PCP Family Medicine; Visit Provider Family Medicine
DX: R07.89 Other chest pain (principal); F41.8 Other specified anxiety disorders; K21.9 Gastro-esophageal reflux disease without esophagitis; Z82.49 Family history of ischemic heart disease and other diseases of the circulatory system
CPT/HCPCS: 78452; 93017

== ENCOUNTER 2020-05-29 00:22 | Outpatient (CLI) | payer BC, SELFPAY ==
--- NOTE | 2020-05-29 | DI.US_ITS ---
APPROVED REPORT EXAM: Comprehensive 2D, Doppler, and color-flow Echocardiogram Patient Location: Out-Patient Hitch Technician: Rosio Galloway RDCS (AE) Indications: Chest pain, Mitral regurgitation Other Information Study Quality: Adequate Conclusion Left Ventricle : The left ventricle is normal size. The left ventricular systolic function is normal. The left ventricular ejection fraction is within the normal range. There is normal left ventricular wall thickness. There is normal LV segmental wall motion. The left ventricular diastolic function is normal. LVEF is 55-60%. Right Ventricle : The right ventricle is normal size. The right ventricular systolic function is norm al. The RVSP is 24.5 mmHg. Atria : The left atrium size is normal. The right atrium size is normal. Mitral Valve : The mitral valve is normal in structure. Mild mitral regurgitation. No evidence of rickie ral valve stenosis. Tricuspid Valve : The tricuspid valve is normal in structure. Mild to moderate tricuspid regurgitatio n. There is no tricuspid valve stenosis. Great Vessels : The aortic root is normal in size. The ascending aorta is normal in size. Aortic arch is normal in caliber. IVC is normal in size and collapses >50% with inspiration. See remainder of study for further details. Wall motion Left Ventricle The left ventricle is normal size. The left ventricular systolic function is normal. The left ventric ular ejection fraction is within the normal range. There is normal left ventricular wall thickness. T here is normal LV segmental wall motion. The left ventricular diastolic function is normal. There is no ventricular septal defect visualized. LVEF is 55-60%. Right Ventricle The right ventricle is normal size. The right ventricular systolic function is normal. The RVSP is 24 .5 mmHg. Atria The left atrium size is normal. The right atrium size is normal. The interatrial septum is intact wit h no evidence for an atrial septal defect. Aortic Valve The aortic valve is normal in structure. Aortic valve is trileaflet. There is no aortic valvular sten osis. No aortic regurgitation is present. Mitral Valve The mitral valve is normal in structure. No evidence of mitral valve stenosis. Mild mitral regurgitat ion. Tricuspid Valve The tricuspid valve is normal in structure. There is no tricuspid valve stenosis. Mild to moderate tr icuspid regurgitation. Pulmonic Valve The pulmonary valve is normal in structure. There is no pulmonic valvular stenosis. Trace pulmonic re gurgitation. Great Vessels The aortic root is normal in size. The ascending aorta is normal in size. Aortic arch is normal in ca liber. IVC is normal in size and collapses >50% with inspiration. Pericardium There is no pericardial effusion. 2D Dimensions IVSD d PLAX 0.93 cm F: 0.6-1.0 LV Vol A2C d MOD 113.9 mL LVPW d PLAX 0.93 cm F: 0.6 - 1.0 LV Vol A4C d MOD 102.4 mL LVID d PLAX 5.11 cm F: 3.8 - 5.2 LA vol/ BSA A2C s A-L 39.6 mL/m2 LVDs 3.45 cm F: 2.2 - 3.5 LA vol/ BSA A4C s A-L 23.2 mL/m2 Ao Root d 3.09 cm F: 2.7 - 3.3 LA Vol/ BSA Biplane s A-L 30.3 mL/m2 RA Area A4C 17.02 cm2 LA Area A4C s MOD 18.55 cm2 RA Vol/ BSA A4C s A-L 23.6 mL/m2 LA Area A2C s MOD 24.28 cm2 Ao Asc Diam d 3.11 cm F: 2.3 - 3.1 LV EF A4C MOD 57.3 % LV EF Teichholz 59.3 % LV EF A2C MOD 55.0 % LVEF (Mendoza's) 54.83 % F: 54 - 74 LV EF Biplane MOD 54.8 % LV Volume 79.32 mL F: 46 - 106 SV 59.63 mL LV Volume Index 36.38 mL/m2 F: 29 - 61 SV Index 27.36 mL/m2 LV Vol Biplane MOD 108.7 mL FS 31.60 % M-Mode TAPSE 2.35 cm (M/F) >1.7 LV Diastology MV E' medial 0.094 (>0.07 m/s) E/A Ratio 1.1 LV E/e MED 9.25 (<14) MV E Vmax 0.87 (0.4-1.3 m/s) MV E' lateral 0.123 (>0.1 m/s) MV A Vmax 0.80 (0.4-1.3 m/s) LV E/e LAT 7.05 (<14) MV E/A Ratio 1.04 MV E/E' medial 9.29 MV E/E' lateral 7.08 Aortic Valve LVOT Area 3.61 cm2 AoV Area Vmax 3.01 cm2 LVOT Vmax 1.14 m/s AoV Area/ BSA (Vmax) 1.38 cm2/m2 LVOT Mean Alexis. 0.68 m/s TIFFANY Mean Alexis. 2.80 cm2 LVOT Peak Grad 5.2 mmHg TIFFANY Mean Alexis. Index 1.28 cm2/m2 LVOT Mean Grad 2.2 mmHg LVOT VTI 0.248 m LVOT Diam s 2.10 cm AoV Vmax 1.36 m/s Velocity Ratio 0.83 AoV Mean Alexis. 0.87 m/s AoV Peak Grad 7.4 mmHg LVOT SV 89.31 mL AoV Mean Grad 3.5 mmHg AoV VTI 0.257 m AoV Area VTI 3.47 cm2 AoV Area/ BSA (VTI) 1.59 cm/m2 Mitral Valve MV DT 232 (160-240 msec) MR Vmax 4.38 m/s MV PHT 67 msec MR VTI 1.684 m MV Area PHT 3.27 cm2 MR Peak Grad 76.6 mmHg MV VTI 0.264 m MR Mean Grad 61.8 mmHg MV VTI Annulus 0.286 m MR PISA Radius 0.39 cm MV Area VTI 3.70 (4.0-6.0 cm2) MR EROA 0.08 cm2 MR Aliasing Velocity 0.35 m/s MR PISA 0.95 cm2 Pulmonary Valve PV Vmax 1.16 (0.5-1.5 m/s) RVOT Peak Gr. 3.54 mmHg PV Peak Grad 5.4 mmHg RVOT Mean Gr. 1.45 mmHg PV Mean Grad 2.8 mmHg RVOT VTI 0.185 m PV VTI 0.226 m RVOT Vmax 0.94 m/s Tricuspid Valve TR Peak Grad 21.4 mmHg TR Vmax 2.32 m/s RA Pressure 3.00 mmHg RVSP (TR) 24.5 mmHg
== END 2020-05-29 00:42 ==
PROVIDERS: PCP Family Medicine; Visit Provider Family Medicine
DX: I08.1 Rheumatic disorders of both mitral and tricuspid valves
CPT/HCPCS: 93306

== ENCOUNTER 2020-07-16 01:19 | Outpatient (CLI) | payer BC, SELFPAY ==
--- NOTE | 2020-07-16 08:30 | DI.MAMMO_ITS ---
EXAM: MG MAMMO SCREENING CLINICAL HISTORY: screening TECHNIQUE: Bilateral full field digital CC and MLO mammographic images were obtained with 3D tomosyn thesis and utilizing computer aided detection (CAD). COMPARISON: Available for comparison. FINDINGS: Masses/Architectural Distortion: There is a new 5 mm nodular density in the upper central right breas t on the MLO view 5 cm from the nipple. Microcalcifications: No suspicious pleomorphic-type are seen. Skin Thickening/Nipple Retraction: None. IMPRESSION: 1. New nodular density in the right breast seen on the MLO view. 2. Further evaluation with a spot compression view and right breast ultrasound are recommended. BI-RADS Category 0 - Assessment Incomplete: Need additional imaging evaluation Breast Density - Category B - Scattered areas of fibroglandular density Breast density category C or D implies that the patient has dense breast tissue. Dense breast tissue is very common and is not abnormal but dense breast tissue can make it harder to find cancer on a ma mmogram. Also, dense breast tissue may increase their breast cancer risk. This information about the result of the mammogram report was provided to the patient to raise their awareness. Use this report when you speak with the patient about their risks for breast cancer, which includes their family hist ory. At that time, you may recommend for more screening tests (Ultrasound or MRI) as they might be us eful based on their risk. A negative radiographic report should not delay biopsy if a dominant or clinically suspicious mass is present. Up to ten percent of cancers are not identified on mammography. A negative report may reinforce clinical impression. Adenosis and dense breasts may obscure an underlying neoplasm. False positive reports average 6 to 10%. Patient will receive a letter notifying them of these results.
== END 2020-07-16 01:20 | disposition home or self-care (01) ==
LOC: DI 01:20
PROVIDERS: PCP Family Medicine; Visit Provider Nurse Practitioner Family
DX: Z12.31 Encounter for screening mammogram for malignant neoplasm of breast (principal)
CPT/HCPCS: 77063; 77067

== ENCOUNTER 2020-07-18 02:02 | Outpatient (CLI) | payer BC, SELFPAY ==
--- NOTE | 2020-07-18 | DI.MAMMO_ITS ---
EXAM: MG MAMMO SCREEN CALL BACK UNI CLINICAL HISTORY: F/U MAMMO, NEW NODULAR DENSITY RT BREAST ON MLO VIEW. COMPARISON: MG MG MAMMO SCREENING from 07/16/2020 MG MG MAMMO SCREENING from 07/16/2020 [id number] TECHNIQUE: Spot compression craniocaudal and mediolateral oblique Digital Mammography views of the right breast followed by Tomosynthesis FINDINGS: Mammography/Tomosynthesis: Masses/Architectural Distortion: None seen. Microcalcifications: No suspicious pleomorphic-type are seen. Skin Thickening/Nipple Retraction: None. No persistent suspicious abnormality is seen on the spot compression views. IMPRESSION: 1. No evidence of malignancy is noted. 2. Unless there is more urgent need, follow-up screening mammography is recommended, as per [place] [employer] guidelines. BI-RADS Category 1 - Negative Breast Density - Category B - Scattered areas of fibroglandular density A negative radiographic report should not delay biopsy if a dominant or clinically suspicious mass is present. Up to ten percent of cancers are not identified on mammography. A negative report may reinforce clinical impression. Adenosis and dense breasts may obscure an underlying neoplasm. False positive reports average 6 to 10%. Patient will receive a letter notifying them of these results.
== END 2020-07-18 02:03 ==
LOC: DI 02:02
PROVIDERS: PCP Family Medicine; Visit Provider Family Medicine
DX: R92.8 Other abnormal and inconclusive findings on diagnostic imaging of breast (principal)
CPT/HCPCS: 77063; 77067

== ENCOUNTER 2021-08-22 01:46 | Outpatient (CLI) | payer BC, SELFPAY ==
--- NOTE | 2021-08-22 | DI.RAD_ITS ---
Exam(s) XR KNEE LT 3V AP,LAT,NASIMA EXAM: XR KNEE LT 3V AP,LAT,NASIMA CLINICAL HISTORY: CHRONIC LT KNEE PAIN, ? OA,H/O MENISCAL INJURY,M25.562. TECHNIQUE: 2D digital imaging was performed. COMPARISON: No exams were available for comparison FINDINGS: 3 views There is no evidence of fracture or obvious joint effusion. There is some degenerative changes, most evident in the medial and patellofemoral compartments. Ther e is mild narrowing of the medial compartment on the weight-bearing view. Marginal osteophyte noted. Lateral compartment exhibits normal height but with marginal osteophyte off the lateral aspect of t he tibial plateau. There is also degenerative subarticular cyst in the sub spinous tibial plateau. Osteophytes are seen off the inferior and superior aspect of the patella. Bone density normal. No osseous lesions. IMPRESSION: Degenerative changes as described above. DATA REPOSITORY: RADIATION DOSE DELIVERED:
== END 2021-08-22 02:06 ==
PROVIDERS: PCP Family Medicine; Visit Provider Family Medicine
DX: M25.562 Pain in left knee (principal); M17.12 Unilateral primary osteoarthritis, left knee; M25.762 Osteophyte, left knee
CPT/HCPCS: 73562

== ENCOUNTER 2021-09-09 15:54 | Outpatient (REF) | payer BC, SELFPAY ==
--- NOTE | 2021-09-09 15:30 | PAPFT_PTH ---
PATIENT: Sheryl Waldron LOC: [facility] U#:[id number] AGE/SX: 45/F ROOM: RE09/09/[address]: JOSIE Alas : 1975 BED: DIS: 09/09/2021 SPEC #: [id number] RECD: 09/09/21 17:28 STATUS: PETE REQ #: [id number] MARIA G: 09/09/21 15:[address]: Arlene Farmer DEPT: [facility] Cytology RECD BY: Jina Gibson ENTERED: 09/09/21 17:29 SP TYPE: PAPFT OTHR DR: Mahesh Sanford Tissues: 1 - CX/ENDOCX FOR PAP SMEARS Procedures: PAP THIN PREP/UVM Screening HPV DNA PROBE Comments: [id number]
== END 2021-09-09 15:55 | disposition home or self-care (01) ==
LOC: LBN 15:54
PROVIDERS: PCP Family Medicine; Visit Provider Nurse Practitioner Family
DX: Z12.4 Encounter for screening for malignant neoplasm of cervix (principal); R87.810 Cervical high risk human papillomavirus (HPV) DNA test positive; Z11.51 Encounter for screening for human papillomavirus (HPV)
CPT/HCPCS: 88142; 87624

== ENCOUNTER → 2021-10-09 00:39 | Outpatient (CLI) | payer BC, SELFPAY ==
--- NOTE | 2021-10-09 15:00 | DI.MAMMO_ITS ---
Exam(s) MAMMO SCREENING EXAM: MAMMO SCREENING CLINICAL HISTORY: screening TECHNIQUE: Mammograms were interpreted according to the usual protocol including computer analysis w [employer] CAD system, tomosynthesis and C-view imaging. COMPARISON: 2014 through 2020 FINDINGS: The breasts are composed of scattered fibroglandular densities, Breast Density category B. No suspicious masses or suspicious microcalcifications are seen. No skin thickening or abnormal axillary lymph nodes are seen. There has been no significant change from prior exams. IMPRESSION: BI-RADS Category 1, Negative mammogram Yearly screening mammography is recommended. Breast Density - Category B, scattered fibroglandular densities. A negative radiographic report should not delay biopsy if a dominant or clinically suspicious mass is present. Up to ten percent of cancers are not identified on mammography. A negative report may reinforce clinical impression. Adenosis and dense breasts may obscure an underlying neoplasm. False positive reports average 6 to 10%. Patient will receive a letter notifying them of these results.
== END ==
PROVIDERS: PCP Family Medicine; Visit Provider Nurse Practitioner Family
DX: Z12.31 Encounter for screening mammogram for malignant neoplasm of breast (principal)
CPT/HCPCS: 77063; 77067

== ENCOUNTER 2022-01-24 17:11 | Outpatient (REF) | payer BC, SELFPAY ==
--- NOTE | 2022-01-24 16:00 | SKI_PTH ---
PATIENT: Sheryl Waldron LOC: [facility] U#:[id number] AGE/SX: 46/F ROOM: RE01/24/[address]: Jeff Stephen DO : 1975 BED: DIS: 01/24/2022 SPEC #: [id number] RECD: 01/27/22 11:26 STATUS: PETE REQ #: [id number] MARIA G: 01/24/22 16:[address]: Jeff Stephen DEPT: Surgical Specimen RECD BY: Jina Gibson ENTERED: 01/27/22 11:27 SP TYPE: SKI OT DR: Mahesh Sanford Tissues: 1 - SKIN BIOPSY(SHAVE/PUNCH) Procedures: SKIN LEVEL 4 Comments: [id number]
== END 2022-01-24 17:12 | disposition home or self-care (01) ==
LOC: LBN 17:11
PROVIDERS: PCP Family Medicine; Visit Provider Otolaryngology Otolaryngology/Facial Plastic Surgery
DX: L92.9 Granulomatous disorder of the skin and subcutaneous tissue, unspecified (principal)
CPT/HCPCS: 88305

== ENCOUNTER 2022-09-02 17:30 | Outpatient (REF) | payer BC, SELFPAY ==
[2022-09-02 19:42] LABS: HCT 40.3 % (36.0-46.0); HGB 13.5 g/dL (11.2-15.7); MCHC 33.5 % (32.0-36.0); MCV 93 fL (80-95); Platelet Count 257 10^3/uL (130-400); RBC 4.35 10^6/uL (3.93-5.22); RDW 13.6 % (11.7-14.6); RDW-SD 46.9 fL; WBC 6.85 10^3/uL (4.4-10.8)
[2022-09-02 20:22] LABS: ALT 20 U/L (14-59); AST 18 U/L (15-37); Albumin 3.9 g/dL (3.4-5.0); Alkaline Phosphatase 87 U/L (46-116); Anion Gap 6.7 mmol/L (3-11); BUN 16 mg/dL (7-18); Bilirubin, Total 0.5 mg/dL (0.2-1.0); CO2 28.3 mmol/L (21.0-32.0); CREATININE 0.6 mg/dL (0.55-1.02); Calcium 8.8 mg/dL (8.5-10.1); Chloride 105 mmol/L (98-107); Estimated GFR 110.65 (mL/min/1.73m2); Ferritin 99 ng/mL (8-252); Glucose 95 mg/dL (74-106); Potassium 4.1 mmol/L (3.5-5.1); Sodium 140 mmol/L (136-145); TSH (W/Ref FT4) 1.63 uIU/mL (0.36-3.74)
== END 2022-09-02 17:31 | disposition home or self-care (01) ==
LOC: NCHCN 17:30
PROVIDERS: PCP Family Medicine; Visit Provider Family Medicine
DX: F10.11 Alcohol abuse, in remission (principal); L65.9 Nonscarring hair loss, unspecified
CPT/HCPCS: 80053; 85027; 82728; 84443

== ENCOUNTER 2022-09-10 16:02 | Outpatient (REF) | payer BC, SELFPAY ==
--- NOTE | 2022-09-10 15:30 | PAPFT_PTH ---
PATIENT: Sheryl Waldron LOC: [facility] U#:[id number] AGE/SX: 46/F ROOM: RE09/10/[address]: Marah Wise DO : 1975 BED: DIS: 09/10/2022 SPEC #: [id number] RECD: 09/10/22 17:38 STATUS: PETE REQ #: [id number] MARIA G: 09/10/22 15:[address]: Marah Wise DEPT: [facility] Cytology RECD BY: Jina Gibson ENTERED: 09/10/22 17:39 SP TYPE: PAPFT OTHR DR: Mahesh Sanford Tissues: 1 - CX/ENDOCX FOR PAP SMEARS Procedures: PAP THIN PREP/UVM Screening HPV DNA PROBE Comments: [id number]
== END 2022-09-10 16:03 | disposition home or self-care (01) ==
LOC: LBN 16:02
PROVIDERS: PCP Family Medicine; Visit Provider Obstetrics & Gynecology
DX: Z12.4 Encounter for screening for malignant neoplasm of cervix (principal); Z11.51 Encounter for screening for human papillomavirus (HPV)
CPT/HCPCS: 88142; 87624

== ENCOUNTER 2022-09-19 17:53 | Outpatient (CLI) | payer BC, SELFPAY ==
--- NOTE | 2022-09-19 | DI.RAD_ITS ---
Exam(s) XR SACRUM COCCYX EXAM: XR SACRUM COCCYX CLINICAL HISTORY: COCCYGEAL PAIN M53.3. TECHNIQUE: 2D digital imaging was performed. COMPARISON: No exams were available for comparison FINDINGS: BONES: No acute fracture is present. No bony destructive lesion is seen. JOINTS: SI joints are unremarkable. The hip joints are unremarkable as visualized. Mild facet joint degenerative changes lower lumbar spine. SOFT TISSUE: Normal. IMPRESSION: Unremarkable radiographs of the sacrum and coccyx. DATA REPOSITORY: RADIATION DOSE DELIVERED:
== END 2022-09-19 18:13 ==
LOC: DI 17:55
PROVIDERS: PCP Family Medicine; Visit Provider Family Medicine
DX: M53.3 Sacrococcygeal disorders, not elsewhere classified (principal)
CPT/HCPCS: 72220

== ENCOUNTER 2022-11-21 00:12 | Outpatient (CLI) | payer BC, SELFPAY ==
--- NOTE | 2022-11-21 07:00 | DI.MAMMO_ITS ---
Exam(s) MAMMO SCREENING EXAM: MAMMO SCREENING CLINICAL HISTORY: screening,z12.39. TECHNIQUE: Bilateral full field digital CC and MLO mammographic images were obtained with 3D tomosyn thesis and utilizing computer aided detection (CAD). COMPARISON: Prior mammograms were reviewed. FINDINGS: There has been no significant change in the appearance and distribution of the fibroglandular tissue. There are no CAD designations. There are no new spiculated masses nor malignant appearing microcalcification groups. There is no significant architectural distortion nor skin thickening-retraction. IMPRESSION: No radiographic evidence of malignancy. BI-RADS Category 1 - Negative Breast Density - Category B - Scattered areas of fibroglandular density Breast density Category C or D implies that the patient has dense breast tissue. Dense breast tissue can make it harder to find cancer on a mammogram. Dense breast tissue is also associated with an incr eased risk of breast cancer. This information about the result of the mammogram report was provided to the patient to raise their awareness. Use this report when you speak with the patient about their risks for breast cancer, which includes their family history. At that time, you may recommend additional screening tests (Ultrasoun d or MRI) as these tests may add significant information. A negative radiographic report should not delay biopsy if a dominant or clinically suspicious mass is present. Up to ten percent of cancers are not identified on mammography. A negative report may reinforce clinical impression. Adenosis and dense breasts may obscure an underlying neoplasm. False positive reports average 6 to 10%. Patient will receive a letter notifying them of these results.
== END 2022-11-21 00:32 ==
LOC: DI 00:12
PROVIDERS: PCP Family Medicine; Visit Provider Obstetrics & Gynecology
DX: Z12.31 Encounter for screening mammogram for malignant neoplasm of breast (principal)
CPT/HCPCS: 77063; 77067

== ENCOUNTER 2022-11-21 00:48 | Outpatient (CLI) | payer BC, SELFPAY ==
--- NOTE | 2022-11-21 | DI.DEXA_ITS ---
Exam(s) XR DEXA BONE DENSITY W/WO SIVA EXAM: XR DEXA BONE DENSITY W/WO SIVA CLINICAL HISTORY: HIGH RISK FOR OSTEOPOROSIS, Z91.89 TECHNIQUE: [employer] C densitometer analysis of left hip, lumbar spine and left forearm. Lat eral survey image of the thoracic and lumbar spine. COMPARISON: No exams were available for comparison FINDINGS: Lateral view of the thoracic and lumbar spine shows no evidence of compression fractures. Bone mineral density measurements of the lumbar spine correspond to a total T-score of 0.8, in the n ormal range. Bone mineral density measurements of the left hip correspond to a total T-score of 1.1. The femoral neck T-score is 0.8. The left forearm bone mineral density measurements correspond to a T-score of the distal 3rd of 0.7. IMPRESSION: Normal bone mineral density.
== END 2022-11-21 01:08 ==
LOC: DI 00:48
PROVIDERS: PCP Family Medicine; Visit Provider Family Medicine
DX: Z13.820 Encounter for screening for osteoporosis (principal); Z91.89 Other specified personal risk factors, not elsewhere classified
CPT/HCPCS: 77080

== ENCOUNTER → 2023-05-12 15:20 | Outpatient (CLI) | payer BC, SELFPAY ==
--- NOTE | 2023-05-12 | DI.RAD_ITS ---
Exam(s) XR WRIST RT COMPL NAVICULAR EXAM: XR WRIST RT COMPL NAVICULAR CLINICAL HISTORY: PAIN IN RT WRIST M25.531. TECHNIQUE: 2D digital imaging was performed. Three views. COMPARISON: No exams were available for comparison FINDINGS: BONES: No acute fracture is present. No bony destructive lesion is seen. JOINTS: The carpal bones are normally aligned. No minimal degenerative changes. SOFT TISSUE: Normal. IMPRESSION: Unremarkable radiographs of the right wrist. DATA REPOSITORY: RADIATION DOSE DELIVERED:
== END ==
PROVIDERS: PCP Family Medicine; Visit Provider Nurse Practitioner Family
DX: M25.531 Pain in right wrist (principal)
CPT/HCPCS: 73110

== ENCOUNTER 2023-09-10 17:50 | Outpatient (REF) | payer BC, SELFPAY ==
[2023-09-10 19:59] LABS: Calculated LDL 107 mg/dL (<100); Cholesterol 218 mg/dL (<200); HDL Cholesterol 95 mg/dL (40-60); Triglyceride 83 mg/dL (<150)
[2023-09-10 20:18] LABS: Hemoglobin A1C 5.3 % (<5.7)
[2023-09-12 09:30] LABS: Hepatitis C Ab w Rflx HCV PCR Negative (Negative)
== END 2023-09-10 17:51 | disposition home or self-care (01) ==
LOC: NCHCN 17:50
PROVIDERS: PCP Family Medicine; Visit Provider Family Medicine
DX: Z13.6 Encounter for screening for cardiovascular disorders (principal); Z00.00 Encounter for general adult medical examination without abnormal findings; Z13.1 Encounter for screening for diabetes mellitus
CPT/HCPCS: 80061; 86803; 83036

== ENCOUNTER → 2023-11-26 00:30 | Outpatient (CLI) | payer BC, SELFPAY ==
--- NOTE | 2023-11-26 15:15 | DI.MAMMO_ITS ---
Exam(s) MAMMO SCREENING EXAM: MAMMO SCREENING CLINICAL HISTORY: screening TECHNIQUE: Bilateral full field digital CC and MLO mammographic images were obtained with 3D tomosyn thesis and utilizing computer aided detection (CAD). COMPARISON: Available for comparison. FINDINGS: Masses/Architectural Distortion: None seen. Microcalcifications: No suspicious pleomorphic-type are seen. Skin Thickening/Nipple Retraction: None. IMPRESSION: 1. No significant interval change with no specific features of malignancy noted. 2. Unless there is more urgent need, screening mammography is recommended, as per [place] [employer] guidelines. BI-RADS Category 1 - Negative Breast Density - Category B - Scattered areas of fibroglandular density Breast density category C or D implies that the patient has dense breast tissue. Dense breast tissue is very common and is not abnormal but dense breast tissue can make it harder to find cancer on a ma mmogram. Also, dense breast tissue may increase their breast cancer risk. This information about the result of the mammogram report was provided to the patient to raise their awareness. Use this report when you speak with the patient about their risks for breast cancer, which includes their family hist ory. At that time, you may recommend for more screening tests (Ultrasound or MRI) as they might be us eful based on their risk. A negative radiographic report should not delay biopsy if a dominant or clinically suspicious mass is present. Up to ten percent of cancers are not identified on mammography. A negative report may reinforce clinical impression. Adenosis and dense breasts may obscure an underlying neoplasm. False positive reports average 6 to 10%. Patient will receive a letter notifying them of these results.
== END ==
PROVIDERS: PCP Family Medicine; Visit Provider Obstetrics & Gynecology
DX: Z12.31 Encounter for screening mammogram for malignant neoplasm of breast (principal)
CPT/HCPCS: 77063; 77067

== ENCOUNTER 2023-11-26 00:58 | Outpatient (CLI) | payer BC, SELFPAY ==
[2023-11-26 15:48] LABS: Abs Immature Grans 0.01 10^3/uL (0.0-0.06); Absolute Basophil Count 0.04 10^3/uL (0.0-0.2); Absolute Eosinophil Count 0.14 10^3/uL (0.0-0.7); Absolute Lymphocyte Count 3.01 10^3/uL (1.2-3.4); Absolute Neutrophil Count 3.76 10^3/uL (1.2-6.7); Basophils % 0.5 %; Eosinophils % 1.9 %; HCT 40.4 % (36.0-46.0); HGB 13.5 g/dL (11.2-15.7); Immature Grans % 0.1 %; Lymphocytes % 40.3 %; MCH 30.5 pg (27.0-33.0); MCHC 33.4 % (32.0-36.0); MCV 91 fL (80-95); MPV 9.3 fL (8.0-11.0); Monocytes % 6.7 %; Neutrophils % 50.5 %; Platelet Count 256 10^3/uL (130-400); RBC 4.42 10^6/uL (3.93-5.22); RDW 13.2 % (11.7-14.6); RDW-SD 44.9 fL; WBC 7.46 10^3/uL (4.4-10.8)
[2023-11-26 16:30] LABS: ALT 19 U/L (14-59); AST 18 U/L (15-37); Albumin 3.8 g/dL (3.4-5.0); Alkaline Phosphatase 65 U/L (46-116); Anion Gap 7.9 mmol/L (3-11); BUN 10 mg/dL (7-18); CO2 28.1 mmol/L (21.0-32.0); CREATININE 0.7 mg/dL (0.55-1.02); Calcium 8.6 mg/dL (8.5-10.1); Chloride 104 mmol/L (98-107); Estimated GFR 105.95 (mL/min/1.73m2); Glucose 93 mg/dL (74-106); Potassium 3.6 mmol/L (3.5-5.1); Sodium 140 mmol/L (136-145); TSH (W/Ref FT4) 2.22 uIU/mL (0.36-3.74); Total Protein 7.2 g/dL (6.4-8.2)
[2023-11-27 08:47] LABS: Lyme Ab w Rflx to Lyme Confirm Negative (Negative)
[2023-11-29 18:03] LABS: Anaplasma phagocytophilum Negative (Negative); B. miyamotoi PCR Negative (Negative); Babesia divergens/MO-1 Negative (Negative); Babesia duncani Negative (Negative); Babesia microti Negative (Negative); Ehrlichia chaffeensis Negative (Negative); Ehrlichia ewingii/canis Negative (Negative); Ehrlichia muris eauclairensis Negative (Negative)
== END 2023-11-26 00:59 | disposition home or self-care (01) ==
LOC: LBO 00:58
PROVIDERS: PCP Family Medicine; Visit Provider Obstetrics & Gynecology
DX: F10.11 Alcohol abuse, in remission (principal); Z01.419 Encounter for gynecological examination (general) (routine) without abnormal findings
CPT/HCPCS: 36415; 80053; 87798; 84443; 85025; 86618

== ENCOUNTER 2024-01-22 15:06 | Outpatient (REF) | payer BC, SELFPAY ==
--- OUTSIDE RECORDS SUMMARY | 2024-01-22 15:08 | XMS_ITS | Clinical Summary ---
Author Organization [facility] Address [address] [place] [address] Care Team Providers Care Director Of Casework Name Role Phone Unavailable Primary Care Provider Unavailabl e Social History Tobacco Use Types Packs/Day Years Used Date Smoking Tobacco: Never Assessed Sex and Gender Information Value Date Recorded Sex Assigned at Not on file Gender Identity Not on file Sexual Orientation Not on file Plan of Treatment Not on file
--- OUTSIDE RECORDS SUMMARY | 2024-01-22 15:08 | XMS_ITS | Encounter Summary ---
Author Organization [facility] [place] [address] Care Team Providers Care Photographic Intelligence Officer Name Role Phone Mahesh Sanford MD Primary Care Provider [phone] Encounter Details Date Type Department Care Team (Late st Contact Info) Description 02/27/2009 Orders Only Derm[facility]ology at [place] [address] [place] [address] Dexter Rodriguez MD [address], [place] [address] Social History Tobacco Use Types Packs/Day Years Used Date Smoking Tobacco: Never Assessed Sex and Gender Information Value Date Recorded Sex Assigned at Not on file Gender Identity Not on file Sexual Orientation Not on file documented as of this encounter Plan of Treatment Not on file documented as of this encounter Procedures Procedure Name Priority Date/Time Associated Diagnosis Comments SURGICAL PATHOLOGY REPORT Routine 02/27/2009 6:25 PM EDT documented in this encounter Results * Surgical Pathology Report (02/27/2009 6:25 PM EDT) Surgical Pathology Report [id number] ? Location: [facility] The signing pathologist has (i) examined the relevant preparation(s) for the specimen(s) and (ii) rendered or confirmed the diagnosis(es). . 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 L lateral arm, formalin. Qty/Size/Weight : ?Single punch, 0.4 cm, unoriented, ferreira-white, ?glistening with an eccentric 0.7-mf-js-diame ter, ?well-circumsc ribed, yellow-brown, granular, ?plaque-like focus. Sections/Proces sing: ??Bisected. ??(T1) ??jlk/SHB Microscopic Description Slides reviewed, microscopic description not recorded. Diagnosis Left lateral arm, punch biopsy: ?? Pyogenic granuloma, ulcerated. CR-0 03/01/09 VMS 03/01/09 Verified by: ? Nic Talbert MD ?Dermatopathol ogist ?(Electronic Signature) The attending pathologist whose signature appears on this report has reviewed all diagnostic slides and has edited the gross and/or microscopic portion of the report in rendering the final pathologic diagnosis. DRAGAN CLEMENS 02/27/2009 6:25 PM EDT Dexter Rodriguez MD PATHOLOGY/CYTOLOGY O RDERABLES DRAGAN CLEMENS documented in this encounter Visit Diagnoses Not on filedocumented in this encounter Care Teams Photographic Intelligence Officer Relationship Specialty Start Date End Date Mahesh Sanford MD [facility] [place] [address] PCP - General Family Medicine 06/22/18 documented as of this encounter
--- OUTSIDE RECORDS SUMMARY | 2024-01-22 15:08 | XMS_ITS | Encounter Summary ---
Author Organization [facility] Address [address] [place] [address] Care Team Providers Care Window Display Designer Name Role Phone Mansi Dodd NP Primary Care Provider Mahesh Sanford MD Primary Care Provider [phone] Encounter Details Date Type Department Care Team (Late st Contact Info) Description 09/10/2021 Lab Requisition [facility] Pathology & Laboratory Medicine - [facility] [address] [place] [address] Arlene Farmer, [facility] [address] [place] [address] Encounter for other general examination Social History Tobacco Use Types Packs/Day Years Used Date Smoking Tobacco: Former Alcohol Use Standard Drinks/Week Comments Yes 0 (1 standard drink = 0.6 oz pur e alcohol) 2-3 glases wine daily Sex and Gender Information Value Date Recorded Sex Assigned at Not on file Gender Identity Not on file Sexual Orientation Not on file documented as of this encounter Plan of Treatment Not on file documented as of this encounter Procedures Procedure Name Priority Date/Time Associated Diagnosis Comments PAP TEST Today 09/09/2021 15:30 EDT Encounter for other general examination HPV DNA DETECTION WITH GENOTYPING, PCR Today 09/09/2021 15:30 EDT Encounter for other general examination documented in this encounter Results * (ABNORMAL) HUMAN PAPILLOMAVIRUS (HPV) DETECTION-HIGH RISK TYPES (09/09/2021 15:30 EDT) HPV other High Risk types, PCR Positive( A) Negative 09/16/2021 10:44 EDT [facility] Comment:E6 OR E7 mRNA from o ne or more types of HPV types 16,18,31,33,35,39,45,51,52,56,58,59,66, and 68 is detected by golf sales manager mediated amplification. High and intermediate risk HPV types are associated with most squamous intraepithelial lesions and cervical cancers. Papanicolaou smear specimen (specimen) CERVIX UTERI STRUCTURE / Unknown 09/09/2021 15:30 EDT 09/12/2021 12:55 EDT Arlene Farmer [facility] MICROBIOLOGY - GENER AL ORDERABLES [facility] [address] [place] [address] * PAP TEST (09/09/2021 15:30 EDT) Specimens A. Cervix and/or Endocervix , ThinPrep Imaging System with Manual Evaluation 09/16/2021 10:44 T [facility] Specimen Adequacy Satisfactory for Evaluation - transformation zone component absent 09/16/2021 10:44 [facility] General Categorization Negative for intraepithelial lesion or malignancy 09/16/2021 10:44 [facility] Attestation . 09/16/2021 10:44 [facility] at 1044 Clinical History See below 09/17/19 10:44 [facility] HPV The result for the Human Papillomavirus (HPV) Detection-High Risk Types is Positive . E6 OR E7 mRNA from one or more types of HPV types 16,18,31,33,35,39 ,45,51,52,56,58,5 9,66, and 68 is detected by golf sales manager mediated amplification. High and intermediate risk HPV types are associated with most squamous intraepithelial lesions and cervical cancers. Testing was performed on specimen [id number] and was resulted on 09/13/2021 1450 EDT by KELVIN, LAB INSTRUMENT RESULTS IN 09/16/2021 10:44 EDT [facility] Performing Lab [facility] 09/16/2021 10:44 EDT [facility] Scanned Images 09/16/2021 10:44 EDT [facility] Papanicolaou smear specimen (specimen) CERVIX UTERI STRUCTURE / Unknown 09/09/2021 15:30 EDT 09/10/2021 11:42 EDT Arlene Farmer HOME APPLIANCES MECHANIC PATHOLOGY ORDERABLES Performing Organization Address City/State/[facility] Co de Phone Number [facility] [address] [place] [address] documented in this encounter Visit Diagnoses Diagnosis Encounter for other general examination documented in this encounter Care Teams Window Display Designer Relationship Specialty Start Date End Date Mansi Dodd NP [address] [place] [address] [address] [place] [address] PCP - General 12/05/11 12/05/21 Mahesh Sanford MD [address] [place] [address] PCP - General 12/06/21 documented as of this encounter
--- OUTSIDE RECORDS SUMMARY | 2024-01-22 15:08 | XMS_ITS | Referral Summary ---
Author Organization [facility] Address [address] [place] [address] Care Team Providers Care Glove Cuffer Name Role Phone Unavailable Primary Care Provider Unavailabl e Social History Tobacco Use Types Packs/Day Years Used Date Smoking Tobacco: Never Assessed Sex and Gender Information Value Date Recorded Sex Assigned at Not on file Gender Identity Not on file Sexual Orientation Not on file Plan of Treatment Not on file
--- OUTSIDE RECORDS SUMMARY | 2024-01-22 15:08 | XMS_ITS | Encounter Summary ---
Author Organization [facility] Address [address] [place] [address] Care Team Providers Care Diamond Blender Name Role Phone Allison Hearn NP Primary Care Provider [phone] Encounter Details Date Type Department Care Team (Late st Contact Info) Description 01/29/2015 Results Only [facility] [phone] Arlene Farmer, [address] [phone] Social History Tobacco Use Types Packs/Day Years [...] Name Priority Date/Time Associated Diagnosis Comments PAP TEST- RESULT ONLY Routine 01/29/2015 0:00 EDT documented in this encounter Results * PAP TEST- RESULT ONLY (01/29/2015 0:00 EDT) Pathology Report: CYTOPATHOLOGY REPORT Reports generated via electronic interface contain original data; however they are lacking the format of the original report. Caution should be taken when reading/interpreti ng unformatted reports. Name: ? SHERYL WALDRON ? Accession #: ? [id number] ? : ? 1975 (Age: 39) ??F ?Collect Date: ? 01/29/2015 ? Location: ? [facility] ? Receive Date: ? 01/30/2015 ? Provider: ARLENE FARMER CAPTAIN CANNERY TENDER Copy to: ALLISON HEARN DEPUTY PROGRAM MANAGER ? Final Report SPECIMEN ADEQUACY ? Satisfactory for Evaluation - transformation zone component present GENERAL CATEGORIZATION ? Negative for Intraepithelial Lesion or Malignancy ?? Last Menstrual Period: 01/15/15 Specimen/Source: ??Pap Test, Cervix/Endocervix, ThinPrep Imaging System with manual evaluation Document reviewed and electronically signed by: ? MADINA Williamson(ASCP) ? Report ??Date: 02/01/2015 12:23 HPV with Pap Test ? Date Ordered: ? 02/01/2015 ? Status: ?? Signed Out ?Date Complete: ? 02/05/2015 ? By: ??System Interface ? Date Reported: ? 02/05/2015 ? Interpretation RESULT: Negative for HPV. No E6 or E7 mRNA is detected from HPV types 16,18,31,33,35, 39,45,51,52,56,58, 59,66, and 68 by retail manager in training mediated amplification. Comments Document reviewed and electronically signed by: ? System Interface ? Report date: 02/05/2015 By the signature above, the attending physician certifies that he/she has personally conducted a gross and/or microscopic examination of the described specimens and rendered or confirmed the above diagnosis. End of Report [facility] 01/29/2015 01/30/2015 Arlene Farmer CAPTAIN CANNERY TENDER PATHOLOGY ORDERABLES Performing Organization Address City/State/[facility] Co de Phone Number [facility] [address] [place] [address] documented in this encounter Visit Diagnoses Not on filedocumented in this encounter Care Teams Diamond Blender Relationship Specialty Start Date End Date Allison Hearn NP [address] [place] [address] [address] [place] [phone] PCP - General 12/05/11 12/05/21 documented as of this encounter
--- OUTSIDE RECORDS SUMMARY | 2024-01-22 15:08 | XMS_ITS | Encounter Summary ---
Author Organization [facility] [place] [address] [place] [address] Care Team Providers Care Fitter Mechanic Name Role Phone Mahesh Sanford MD Primary Care Provider [phone] Encounter Details Date Type Department Care Team (Late st Contact Info) Description 11/03/2008 Orders Only Dermatology at [place] [address] [facility] [address] [place] [address] Dexter Rodriguez MD [address], [place] [address] Social History Tobacco Use Types Packs/Day Years [...] Associated Diagnosis Comments SURGICAL PATHOLOGY REPORT Routine 11/03/2008 8:14 PM EDT documented in this encounter Results * Surgical Pathology Report (11/03/2008 8:14 PM EDT) Surgical Pathology Report [id number] ? Location: [facility] The signing pathologist has (i) examined the relevant preparation(s) for the specimen(s) and (ii) rendered or confirmed the diagnosis(es). . ?Pathology Surgical Pathology Final Report Clinical Information Specimen Submitted: A - (R) labia majoraKey (1): Clinical History: Bothersome mole in 21-week female Clinical Diagnosis: Nevus Report to: Dexter Rodriguez MD, III [facility] Dermatology [place], [place] ??[address] Gross Description Labeled/Fixativ e: ? Labeled with the patient's name, formalin. Qty/Size/Weight : ?Single shave, 0.8 cm, of rubbery, yellow-vargas skin. Sections/Proces sing: ??Inked. ??Trisected. ??(T1) aje/EJR Microscopic Description The junctional melanocytes are focally arranged as single melanocytes in a nearly confluent pattern. ??These melanocytes are enlarged and epithelioid with finely pigmented cytoplasm and cytologic atypia, and involve peripheral margins. ??The dermal nevus cells mature with depth. Diagnosis Right labia majora, shave biopsy: Compound nevus with moderate to focal severe cytologic atypia of junctional melanocytes, involving peripheral and deep margins of the biopsy. CR-0 11/07/08 [facility] 11/09/08 Verified by: ? Tavia Gutierrez MD ?Dermatopathol ogist ?(Electronic Signature) The attending pathologist whose signature appears on this report has reviewed all diagnostic slides and has edited the gross and/or microscopic portion of the report in rendering the final pathologic diagnosis. Comment Nitish Kc and Amandeep also examined the case and concur with the interpretation. DRAGAN GODDARDIUM 11/03/2008 8:14 PM EDT Dexter Rodriguez MD PATHOLOGY/CYTOLOGY O RDERABLES DRAGAN CLEMENS documented in this encounter Visit Diagnoses Not on filedocumented in this encounter Care Teams Fitter Mechanic Relationship Specialty Start Date End Date Mahesh Sanford MD [address] [place] [address] PCP - General Family Medicine 06/22/18 documented as of this encounter
--- OUTSIDE RECORDS SUMMARY | 2024-01-22 15:08 | XMS_ITS | Encounter Summary ---
Author Organization [facility] Address [address] [place] [address] Care Team Providers Care Teletypesetter Operator Name Role Phone Mansi Dodd NP Primary Care Provider [phone] Encounter Details Date Type Department Care Team (Late st Contact Info) Description 05/20/2018 Results Only [facility] [phone] Arlene Farmer, [address] [phone] Social History Tobacco Use Types Packs/Day Years [...] Diagnosis Comments PAP TEST- RESULT ONLY Routine 05/20/2018 0:00 EST documented in this encounter Results * PAP TEST- RESULT ONLY (05/20/2018 0:00 EST) Pathology Report: CYTOPATHOLOGY REPORT Reports generated via electronic interface contain original data; however they are lacking the format of the original report. Caution should be taken when reading/interpreti ng unformatted reports. Name: ? PEEWEE WALDRONBETAYO Carreon ? Accession #: ? [id number] ? : ? 1975 (Age: 42) ??F ?Collect Date: ? 05/20/2018 ? Location: ? [facility] ? Receive Date: ? 05/24/2018 ? Provider: ARLENE FARMER DELIVERY DIRECTOR Copy to: ? Final Report SPECIMEN ADEQUACY ? Satisfactory for Evaluation - transformation zone component absent GENERAL CATEGORIZATION ? Negative for Intraepithelial Lesion or Malignancy ?? Last Menstrual Period: 04/27/2018 Specimen/Source: ??Pap Test, Cervix, ThinPrep Imaging System with manual evaluation Document reviewed and electronically signed by: ? MADINA Mckeon(ASCP) ? Report ??Date: 05/27/2018 08:27 HPV with Pap Test ? Date Ordered: ? 05/27/2018 ? Status: ?? Signed Out ?Date Complete: ? 05/28/2018 ? By: ??System Interface ? Date Reported: ? 05/28/2018 ? Interpretation RESULT: Negative for HPV. No E6 or E7 mRNA is detected from HPV types 16,18,31,33,35, 39,45,51,52,56,58, 59,66, and 68 by warp starter mediated amplification. Comments Document reviewed and electronically signed by: ? System Interface ? Report date: 05/28/2018 By the signature above, the attending physician certifies that he/she has personally conducted a gross and/or microscopic examination of the described specimens and rendered or confirmed the above diagnosis. End of Report [facility] 05/20/2018 05/24/2018 Arlene Farmer DELIVERY DIRECTOR PATHOLOGY ORDERABLES Performing Organization Address City/State/[facility] Co de Phone Number [facility] [address] [place] [address] documented in this encounter Visit Diagnoses Not on filedocumented in this encounter Care Teams Teletypesetter Operator Relationship Specialty Start Date End Date Mansi Dodd NP [address] [place] [address] [address] [place] [address] PCP - General 12/05/11 12/05/21 documented as of this encounter
--- OUTSIDE RECORDS SUMMARY | 2024-01-22 15:08 | XMS_ITS | Clinical Summary ---
Author Organization [facility] Address [address] [place] [address] Care Team Providers Care Combiner Name Role Phone Mahesh Sanford MD Primary Care Provider [phone] Allergies Active Allergy Reactions Criticality Noted Date Comments Sulfa (Sulfonamide Antibiotics) Rash 08/06 And swelling Medications Medication Sig Dispensed Refills Start Date End Date Status esomeprazole (NEXIUM) 20 mg capsule Take 20 mg by mouth daily. Active citalopram (CELEXA) 20 mg tablet Take 20 mg by mouth daily. Active acyclovir (ZOVIRAX) 5 % ointment Apply topically every 3 hours As needed . Active ACYCLOVIR (ZOVIRAX ORAL) Take by mouth daily Uncertain dose . Active UNABLE TO FIND Control Pills . Active Encounters Date Type Department Care Team Description 11/26/2023 Lab Requisition [facility] Pathology & Laboratory Medicine - [facility] [address] [place] [address] Outr Resulting Lab, Provider from Last 3 Months Social History Tobacco Use Types Packs/Day Years Used Date Smoking Tobacco: Former Alcohol Use Standard Drinks/Week Comments Yes 0 (1 standard drink = 0.6 oz pur e alcohol) 2-3 glases wine daily Sex and Gender Information Value Date Recorded Sex Assigned at Not on file Gender Identity Not on file Sexual Orientation Not on file Obstetrics History Last Filed Vital Signs Vital Sign Reading Time Taken Comments Blood Pressure 147/103 08/24/2013 0823 EDT Pulse 112 08/24/2013 0823 EDT Temperature 37.7 ??C (99.9 ??F) 08/24/2013 0823 EDT Respiratory Rate 18 08/24/2013 0823 EDT Oxygen Saturation 100% 08/24/2013 0823 EDT Inhaled Oxygen Concentration - - Weight 104.3 kg (230 lb) 08/24/2013 0823 EDT Height 164.1 cm (5' 4.6) 08/24/2013 0823 EDT Body Mass Index 38.75 08/24/2013 0823 EDT Plan of Treatment Health Maintenance Due Date Last Done Comments Hepatitis B Vaccine (1 of 3 - 19+ 3-dose series) 11/28 COVID-19 Vaccine ( - 2022- season) 2023 Hepatitis C Screen Completed 09/10/2023 Procedures Procedure Name Priority Date/Time Associated Diagnosis Comments LYME AB Routine 11/26/2023 15:38 EDT HEPATITIS C AB W REFLEX TO HCV RNA BY PCR Routine 09/10/2023 17:09 EDT from Last 3 Months or Most Recently Relevant to Health Maintenance Results * LYME AB (11/26/2023 15:38 EDT) Lyme Ab Negative Negative 11/27/2023 8:42 EDT [facility] Blood VENOUS BLOOD / Unknown 11/26/2023 15:38 EDT 11/26/2023 21:58 EDT Provider Outr Resulting Lab IMMUNOLOGY A ND SEROLOGY ORDERABLES [facility] [address] [place] [address] * HEPATITIS C AB W REFLEX TO HCV RNA BY PCR (09/10/2023 17:09 EDT) Hep C Antibody Negative Negative 09/12/2023 9:26 EDT [facility] Blood VENOUS BLOOD / Unknown 09/10/2023 17:09 EDT 09/11/2023 17:05 EDT Provider Outr Resulting Lab CHEMISTRY & BLOOD GAS ORDERABLES [facility] [address] [place], [place] [address] from Last 3 Months or Most Recently Relevant to Health Maintenance Care Teams Combiner Relationship Specialty Start Date End Date Mahesh Sanford MD [address] [place] [address] PCP - General 12/06/21
--- OUTSIDE RECORDS SUMMARY | 2024-01-22 15:08 | XMS_ITS | Encounter Summary ---
Author Organization [facility] Address [address] [place] [address] Care Team Providers Care Is Project Manager Name Role Phone Mahesh Sanford MD Primary Care Provider Encounter Details Date Type Department Care Team (Late st Contact Info) Description 01/27/2022 Lab Requisition [facility] Pathology & Laboratory Medicine - [facility] [address] [place] [address] Jeff Stephen, [address] [place], [place] [id number] Encounter for other general examination Social History [...] Priority Date/Time Associated Diagnosis Comments SURGICAL PATHOLOGY Today 01/24/2022 16 :00 EDT Encounter for other general examination documented in this encounter Results * SURGICAL PATHOLOGY (01/24/2022 16:00 EDT) Note to Patient The following pathology results have been interpreted by your pathologist and may be available to you before your health provider has had the opportunity to review them. Please allow time for your provider to receive these results and explore management options, if applicable. 01/28/2022 15:52 [facility] Final Diagnosis A. SKIN OF ELBOW, RIGHT, SHAVE BIOPSY: - Granulomatous dermatitis, consistent with granuloma annulare. 01/28/2022 15:52 [facility] Attestation By the signature below, the attending physician certifies that they have 1) personally conducted a gross and/or microscopic examination of the described specimen(s), and/or personally interpreted the results of laboratory testing of the described specimen(s), and 2) personally rendered or confirmed the above diagnosis. 01/28/2022 15:52 [facility] at 1552 Microscopic Description Sections consist of fragmented portions of skin. The epidermis is mildly hyperplastic but otherwise unremarkable. Within the dermis, there is a patchy interstitial infiltrate. Portions of the infiltrate consists of small lymphocytes. In 1 of the fragmented portions of reticular dermis, there is a palisaded granuloma. The granuloma surrounds an area of degenerated collagen with accumulation of stringy basophilic material resembling mucin. 01/28/2022 15:52 [facility] Clinical History Chronic dermatitis; ? Fungus, yeast or plaques? 01/28/2022 15:52 [facility] Gross Description A. Received in formalin labelled with proper patient identification (initials D, E) and right elbow is an aggregate of multiple vargas-white irregular shave biopsy fragments ranging from 0.4 x 0.2 x 0.1 cm to 0.6 x 0.6 x 0.1 cm. The margins are inked blue and the fragments are submitted in A1-A2. FARRUKH EMANUEL(ASCP) 01/28/2022 7:58 01/28/2022 15:52 [facility] Performing Lab [facility] 01/28/2022 15:52 [facility] Scanned Images 01/28/2022 15:52 [facility] Tissue TISSUE SPECIMEN FROM SKIN / Unknown 01/24/2022 16:00 EDT 01/27/2022 18:43 EDT Jeff Stephen DO PATHOLOGY ORDER NENA [facility] [address] [place] [address] documented in this encounter Visit Diagnoses Diagnosis Encounter for other general examination documented in this encounter Care Teams Is Project Manager Relationship Specialty Start Date End Date Mahesh Sanford MD [address] [place] [address] PCP - General 12/06/21 documented as of this encounter
--- OUTSIDE RECORDS SUMMARY | 2024-01-22 15:08 | XMS_ITS | Referral Summary ---
Author Organization [facility] Address [address] [place] [address] Care Team Providers Care Retail Consultant Name Role Phone Mahesh Sanford MD Primary Care Provider [phone] Encounters Date Type Department Care Team Description 11/26/2023 Lab Requisition [facility] Pathology & Laboratory Medicine - [facility] [address] [place] [address] Outr Resulting Lab, Provider from Last 3 Months Allergies Active Allergy Reactions Criticality Noted Date [...] UNABLE TO FIND Control Pills . Active Social History Tobacco Use Types Packs/Day Years Used Date Smoking Tobacco: Former Alcohol Use Standard Drinks/Week Comments Yes 0 (1 standard drink = 0.6 oz pur e alcohol) 2-3 glases wine daily Sex and Gender Information Value Date Recorded Sex Assigned at Not on file Gender Identity Not on file Sexual Orientation Not on file Last Filed Vital Signs Vital Sign Reading [...] 38.75 08/24/2013 0823 EDT Plan of Treatment Not on file Procedures Procedure Name Priority Date/Time Associated Diagnosis Comments LYME AB Routine 11/26/2023 15:38 EDT HEPATITIS C AB W REFLEX TO HCV RNA BY PCR Routine 09/10/2023 17:09 EDT from Last 3 Months or Most Recently Relevant to Health Maintenance Results * LYME AB (11/26/2023 15:38 EDT) Lyme Ab Negative Negative 11/27/2023 8:42 EDT [facility] Blood VENOUS BLOOD / Unknown 11/26/2023 15:38 EDT 11/26/2023 21:58 EDT Provider Outr Resulting Lab IMMUNOLOGY A ND SEROLOGY ORDERABLES [facility] [address] [place] [address] * HEPATITIS C AB W REFLEX TO HCV RNA BY PCR (09/10/2023 17:09 EDT) Hep C Antibody Negative Negative 09/12/2023 9:26 EDT [facility] Blood VENOUS BLOOD / Unknown 09/10/2023 17:09 EDT 09/11/2023 17:05 EDT Provider Outr Resulting Lab CHEMISTRY & BLOOD GAS ORDERABLES [facility] [address] [place] [address] from Last 3 Months or Most Recently Relevant to Health Maintenance Care Teams Retail Consultant Relationship Specialty Start Date End Date Mahesh Sanford MD [address] [place] [address] PCP - General 12/06/21
--- OUTSIDE RECORDS SUMMARY | 2024-01-22 15:08 | XMS_ITS | Encounter Summary ---
Author Organization [facility] Address [address] [place] [address] Care Team Providers Care Oak Tanner Name Role Phone Mahesh Sanford MD Primary Care Provider [phone] Encounter Details Date Type Department Care Team (Late st Contact Info) Description 11/26/2023 Lab Requisition [facility] Pathology & Laboratory Medicine - [facility] [address] [place], [place] [address] Outr Resulting Lab, Provider Social History Tobacco Use Types Packs/Day Years [...] Comments LYME AB Routine 11/26/2023 15:38 EDT documented in this encounter Results * LYME AB (11/26/2023 15:38 EDT) Lyme Ab Negative Negative 11/27/2023 8:42 EDT [facility] Blood VENOUS BLOOD / Unknown 11/26/2023 15:38 EDT 11/26/2023 21:58 EDT Provider Outr Resulting Lab IMMUNOLOGY A ND SEROLOGY ORDERABLES [facility] [address] [place], [place] [id number] documented in this encounter Visit Diagnoses Not on filedocumented in this encounter Care Teams Oak Tanner Relationship Specialty Start Date End Date Mahesh Sanford MD [address] [place] [address] PCP - General 12/06/21 documented as of this encounter
--- OUTSIDE RECORDS SUMMARY | 2024-01-22 15:08 | XMS_ITS | Encounter Summary ---
Author Organization [facility] Address [address] [id number] Care Team Providers Care Airport Operations Manager Name Role Phone Unavailable Primary Care Provider Unavailabl e Encounter Details Date Type Department Care Team (Late st Contact Info) Description 01/12/2014 Hospital Visit [facility] Outpatient Social History Tobacco Use Types Packs/Day Years Used Date Smoking Tobacco: Never Assessed Sex and Gender Information Value Date Recorded Sex Assigned at Not on file Gender Identity Not on file Sexual Orientation Not on file documented as of this encounter Plan of Treatment Not on file documented as of this encounter Procedures Procedure Name Priority Date/Time Associated Diagnosis Comments LYME DISEASE AB IGG IGM Routine 01/12/2014 12:00 AM EDT CBC + DIFFERENTIAL Routine 01/12/2014 12 :00 AM EDT CULTURE THROAT Routine 01/12/2014 12:00 AM EDT TSH Routine 01/12/2014 12:00 AM EDT HEMOGLOBIN A1C Routine 01/12/2014 12:00 AM EDT COMPREHENSIVE METABOLIC PANEL Routine 01/12/2014 12:00 AM EDT documented in this encounter Results * LYME DISEASE AB IGG IGM (01/12/2014 12:00 AM EDT) Lyme Disease Ab IgG IgM NEGATIVE NEGATIVE 01/16/2014 4:02 PM EDT [facility] Comment: Antibody to B.burgdorferi not detected. If symptomology is suggestive of Lyme disease, re-test in 2-4 weeks - - Testing Location, Address and Oriental Rug Stretcherinformation receptionist may be obtained,by calling [facility] at 01/12/2014 01/12/2014 3:2 6 PM EDT Lee Ann Gilliam [facility] S [facility] [place] [address] * CULTURE THROAT (01/12/2014 12:00 AM EDT) 01/12/2014 01/12/2014 3:2 5 PM EDT Narrative [facility] - 01/12/2014 12:00 AM EDT ----- ------- ?? RUN DATE: 01/13/14 ? [facility] LIVE ? PAGE 1 ? RUN TIME: 1112 ?Specimen Inquiry ? ----- ------- ?? PATIENT: SHERYL WALDRON ? ACCT: [id number] LOC: ??LABS ? U: [id number] ? AGE/SX: 38/F ? ROOM: ?RE01/12/14 ?? REG DR: ??LEE ANN SHAVER ? : ?1975 ?? BED: ? DIS: ? STATUS: REG REF ?TLOC: ? ----- ------- ? SPEC #: [id number] ?MARIA G: 01/12/14-UNK ?STATUS: ??COMP ? REQ #: [id number] ?RECD: 01/12/14 ? SUBM DR: LEE ANN SHAVER ? SOURCE: THROAT ?ENTR: 01/12/14 ? OTHR DR: ? SPDESC: ? ORDERED: ??THROAT CULTURE ? ----- ------- ?Procedure ? Result ? ----- ------- ?THROAT CULTURE ??Final ?FINAL REPORT CALLED TO AND READ BACK FROM JASBIR SOLIMAN ?([facility]) AT 1111 BY MAGDY 01/13/14. ? Organism 1 ? THROAT CULT POS FOR GR A STREP ? ----- ------- ? END OF REPORT ? Lee Ann Shaver [facility] MICROBIOLOGY - GENER AL ORDERABLES Performing Organization Address [facility] de Phone Number [facility] [place] [address] * HEMOGLOBIN A1C (01/12/2014 12:00 AM EDT) [facility] Hemoglobin A1C 5.3 % 01/12/2014 4:09 PM EDT [facility] Comment: DEGREE OF GLUCOSE CONTROL Non-diabetic level ?<6.0 Goal ?<7.0 Action suggested ?>8.0 Calculated Average Glucose 105.4 mg/dL 01/12/2014 4:09 PM EDT [facility] Comment: *Calculated average plasma glucose for previous 120 days-not a fasting value.* 01/12/2014 01/12/2014 3:2 4 PM EDT Lee Ann Shaver [facility] CHEMISTRY ORDERABLES Performing Organization Address [facility] de Phone Number [facility] [place] [address] * TSH (01/12/2014 12:00 AM EDT) TSH 2.03 0.27 - 4.20 uIU/mL 01/12/2014 3:59 PM T [facility] 01/12/2014 01/12/2014 3:2 4 PM EDT [place] [facility] - 01/12/2014 12:00 AM EDT UNKNOWN Lee Ann Gilliam Caleb [facility] CHEMISTRY ORDERABLES [facility] [place] [phone] * COMPREHENSIVE METABOLIC PANEL (01/12/2014 12:00 AM EDT) Glucose 94 70 - 100 mg/dL 01/12/2014 3:59 PM [facility] Blood Urea Nitrogen 13 6 - 19 mg/dL 01/12/2014 3:59 PM [facility] Creatinine 0.61 0.50 - 1.30 mg/dL 01/12/2014 3:59 PM [facility] EGFR >60 01/12/2014 3:59 PM [facility] Comment: NORMAL RANGE >60ml/min/1.73m(2) For patients of Ancestry, multiply eGFR by 1.2 Clinical use of the eGFR result is not recommended if: - the patient's basal creatinine production is very abnormal, such as extremes of body size or muscle mass (eg. obese,severely malnourished, amputees, parapalegics, or other muscle-wasting diseases). - the patient has an unusual dietary intake (eg. vegetarian, creatine supplements). - the patient has an unstable creatinine level (eg. women, patients with serious co-morbid conditions, and hospitalized patients, particularly those with acute renal failure). Sodium 135 135 - 145 mEq/L 01/12/2014 3:59 PM [facility] Potassium Plasma 4.0 3.3 - 5.3 mEq/L 01/12/2014 3:59 PM EDT [facility] Chloride 99 96 - 108 mEq/L 01/12/2014 3:59 PM EDT [facility] Carbon Dioxide 26 22 - 29 mEq/L 01/12/2014 3:59 PM EDT [facility] Calcium 8.9 8.6 - 10.4 mg/dL 01/12/2014 3:59 PM EDT [facility] Protein 7.0 5.9 - 8.4 gm/dL 01/12/2014 3:59 PM EDT [facility] Albumin 4.1 3.2 - 5.2 gm/dL 01/12/2014 3:59 PM EDT [facility] Bilirubin 0.6 0.0 - 1.0 mg/dL 01/12/2014 3:59 PM EDT [facility] AST 28 5 - 37 U/L 01/12/2014 3:59 PM T [facility] ALT 32 0 - 40 U/L 01/12/2014 3:59 PM T [facility] Alkaline Phosphatase 80 39 - 117 U/L 01/12/2014 3:59 PM [facility] 01/12/2014 01/12/2014 3:2 4 PM EDT [place] [facility] - 01/12/2014 12:00 AM EDT UNKNOWN Lee Ann Shaver [facility] CHEMISTRY ORDERABLES [facility] [place] [address] * CBC + DIFFERENTIAL (01/12/2014 12:00 AM EDT) White Blood Count 10.1 4.2 - 10.2 K/uL 01/12/2014 3:36 PM EDT [facility] Erythrocytes 4.66 3.80 - 5.10 M/uL 01/12/2014 3:36 PM T [facility] Hemoglobin 14.0 11.8 - 15.8 g/dl 01/12/2014 3:36 PM T [facility] Hematocrit 42.1 35.0 - 47.0 % 01/12/2014 3:36 PM [facility] Mean Corpuscular Volume 90.3 80.0 - 100.0 fL 01/12/2014 3:36 PM [facility] Mean Corpuscular Hemoglobin 30.0 26.0 - 34.0 pg 01/12/2014 3:36 PM [facility] Mean Corpuscular Hemoglobin Conc 33.3 32.0 - 36.0 g/dl 01/12/2014 3:36 PM [facility] Erythrocyte Distribution Width CV 14.5 12.0 - 14.6 % 01/12/2014 3:36 PM [facility] Platelet Count 282 140 - 440 K/UL 01/12/2014 3:36 PM [facility] Polymorphonuclear Percent 66.3 47.0 - 80.0 % 01/12/2014 3:36 PM [facility] Immature Granulocytes Percent 0.1 0.0 - 0.5 % 01/12/2014 3:36 PM [facility] Lymphocytes Percent 24.7 14.0 - 46.0 % 01/12/2014 3:36 PM [facility] Monocytes Percent 7.5 5.0 - 12.0 % 01/12/2014 3:36 PM [facility] Eosinophils Percent 1.2 0.0 - 5.0 % 01/12/2014 3:36 PM [facility] Basophils Percent 0.2 0.0 - 2.0 % 01/12/2014 3:36 PM [facility] Neutrophils Absolute 6.7 2.4 - 7.6 K/uL 01/12/2014 3:36 PM [facility] Immature Granulocytes Absolute 0.0 0.0 - 0.1 K/uL 01/12/2014 3:36 PM [facility] Lymphocytes Absolute 2.5 1.0 - 3.3 K/uL 01/12/2014 3:36 PM [facility] Monocytes Absolute 0.8 0.3 - 0.9 K/uL 01/12/2014 3:36 PM [facility] Eosinophils Absolute 0.1 0.0 - 0.4 K/uL 01/12/2014 3:36 PM EDT [facility] Basophils Absolute 0.02 0.0 - 0.12 K/uL 01/12/2014 3:36 PM EDT [facility] Add Manual Diff NO 4 3:38 PM EDT [facility] 01/12/2014 01/12/2014 3:2 4 PM EDT Lee Ann Shaver [facility] HEMATOLOGY ORDERABLE S [facility] [place] [address] documented in this encounter Visit Diagnoses Not on filedocumented in this encounter
--- OUTSIDE RECORDS SUMMARY | 2024-01-22 15:08 | XMS_ITS | Encounter Summary ---
Author Organization [facility] Address [address] [place] [address] Care Team Providers Care Bodily Injury Adjuster Name Role Phone Allison Hearn NP Primary Care Provider Encounter Details Date Type Department Care Team (Late st Contact Info) Description 01/13/2012 Results Only [facility] Laboratory Services - [facility] ([facility] [place] [address] [place] [address], [place] [address] Jimmie Camacho, DO [address] [facility] [address] [place] [address] Social History Tobacco Use Types Packs/Day Years Used Date Smoking Tobacco: Never Assessed Sex and Gender Information Value Date Recorded Sex Assigned at Not on file Gender Identity Not on file Sexual Orientation Not on file documented as of this encounter Plan of Treatment Not on file documented as of this encounter Procedures Procedure Name Priority Date/Time Associated Diagnosis Comments SURGICAL PATHOLOGY Routine 01/13/2012 0:00 EDT documented in this encounter Results * SURGICAL PATHOLOGY (01/13/2012 0:00 EDT) Pathology Report: SURGICAL PATHOLOGY REPORT Reports generated via electronic interface contain original data; however they are lacking the format of the original report. Caution should be taken when reading/interpreti ng unformatted reports. Name: ? SHERYL WALDRON ? Accession #: ? [id number] ? : ? 1975 (Age: 36) ??F ? Collect Date: ? 01/13/2012 ? Location: ? [facility] ? Receive Date: ? 01/13/2012 ? Provider: JIMMIE CAMACHO DO Copy to: ALLISON HEARN BOILER OPERATOR ? Final Pathologic Diagnosis: A. ?Small intestine, terminal ileum, biopsy (2): 1. ?Ileal mucosa with no specific pathologic features. B. ?Colon, right, biopsy (2): 1. ?Colonic mucosa with no specific pathologic features. C. ?Colon, transverse, biopsy (2): 1. ?Colonic mucosa with no specific pathologic features. D. ?Colon, left, biopsy (2): 1. ?Colonic mucosa with no specific pathologic features. E. ?Colon, sigmoid biopsy (2): 1. ?Colonic mucosa with no specific pathologic features. F. ?Rectum, biopsy (2): 1. ?Rectal mucosa with no specific pathologic features. G. ?Stomach, antrum, biopsy: 1. ?Gastric mucosa with no specific pathologic features. H. ?Esophagus, distal, biopsy (4): ? 1. ??Squamous mucosa with no specific pathologic features. ? - Squamocolumnar junction negative for intestinal metaplasia. ? I. ?Esophagus, mid, biopsy (2): ?1. ?? Squamous mucosa with no specific pathologic features. ? J. ?? Esophagus, proximal, biopsy (2): 1. ?Squamous mucosa with no specific pathologic features. Document reviewed and electronically signed by: YAKOV PATEL MD Report ??Date: 01/16/2012 16:50 By the signature above, the attending physician certifies that he/she has personally conducted a gross and/or microscopic examination of the described specimens and rendered or confirmed the above diagnosis. Specimen(s) Received: A. ?Terminal ileum B. ? Ascending colon C. ? Transverse colon D. ? Descending colon E. ? Sigmoid colon F. ? Rectum G. ? Gastric antrum H. ? Distal esophagus I. ? Mid esophagus J. ? Proximal esophagus Clinical History: ? GERD, diarrhea Gross Description: ? Received in formalin labelled Chivo, Sheryl and terminal ileum are two vargas-pink, irregular soft tissue fragments measuring 0.3 x 0.2 x 0.2 cm and 0.4 x 0.3 x 0.2 cm. ??The specimen is entirely submitted as (A). Received in formalin labelled Chivo, Sheryl and ascending colon are two vargas-pink, irregular soft tissue fragments averaging 0.5 x 0.3 x 0.3 cm. ??The specimen is entirely submitted as (B). Received in formalin labelled Chivo, Sheryl and transverse colon are two vargas-pink, irregular soft tissue fragments measuring 0.3 x 0.2 x 0.2 cm and 0.5 x 0.3 x 0.2 cm. ??The specimen is entirely submitted as (C). Received in formalin labelled Chivo, Sheryl and descending colon are two vargas-pink, irregular soft tissue fragments measuring 0.3 x 0.2 x 0.2 cm and 0.5 x 0.3 x 0.2 cm. ??The specimen is entirely submitted as (D). Received in formalin labelled Chivo, Sheryl and sigmoid colon are two vargas-pink, irregular soft tissue fragments measuring 0.2 x 0.2 x 0.2 cm and 0.3 x 0.3 x 0.2 cm. ??The specimen is entirely submitted as (E). Received in formalin labelled Chivo, Sheryl and rectum are two vargas-pink, irregular soft tissue fragments measuring 0.2 x 0.2 x 0.2 cm and 0.4 x 0.2 x 0.2 cm. ??The specimen is entirely submitted as (F). Received in formalin labelled Chivo, Sheryl and gastric antrum is a vargas-pink, 0.5 x 0.3 x 0.2 cm soft tissue fragment. ??The specimen is entirely submitted as (G). Received in formalin labelled Chivo, Sheryl and distal esophagus are four vargas-pink, irregular soft tissue fragments ranging from 0.3 x 0.2 x 0.2 cm to 0.4 x 0.3 x 0.2 cm. ??The specimen is entirely submitted as (H1) and (H2). Received in formalin labelled Chivo, Sheryl and mid esophagus are two vargas-pink, irregular soft tissue fragments measuring 0.3 x 0.2 x 0.2 cm and 0.4 x 0.3 x 0.2 cm. ??The specimen is entirely submitted as (I). Received in formalin labelled Chivo, Sheryl and proximal esophagus are two vargas-pink, irregular soft tissue fragments measuring 0.3 x 0.2 x 0.2 cm and 0.6 x 0.3 x 0.3 cm. ??The specimen is entirely submitted as (J). ??(Lynda Moore)/[facility] End of Report [facility] 01/13/2012 01/13/2012 21: 22 EDT Jimmie Camacho DO PATHOLOGY ORDER [facility] [address] [place] [address] documented in this encounter Visit Diagnoses Not on filedocumented in this encounter Care Teams Bodily Injury Adjuster Relationship Specialty Start Date End Date Allison Hearn NP [address] [place] [address] [address] [place] [address] PCP - General 12/05/11 12/05/21 documented as of this encounter
--- OUTSIDE RECORDS SUMMARY | 2024-01-22 15:08 | XMS_ITS | Encounter Summary ---
[place] [address] Care Team Providers Care Trailer Tank Truck Driver Name Role Phone Mahesh Sanford MD Primary Care Provider [phone] Reason for Referral * Consultation (Routine) - Authorized Specialty Diagnoses / Procedures Referred By Contac t Referred To Contact Hematology and Oncology Diagnoses Family history of malignant neoplasm of breast Marah Wise DO [address] [place] [address] [place] [address] [facility] [address] [place] [address] Referral ID Status Reason Start Date Expiration Date Visits Requested Visits Authorized [id number] Authorized Consult, Test & Treat PCP Updated and/or Approved 01/28/2023 01/27/2025 6 6 Encounter Details Date Type Department Care Team (Late st Contact Info) Description 01/28/2023 Transcribe Orders eDH Incoming Referrals [phone] Marah Wise DO [address] [place] [address] [address] [place] [id number] Family history of malignant neoplasm of breast Social History Tobacco Use Types Packs/Day Years Used Date Smoking Tobacco: Never Assessed Sex and Gender Information Value Date Recorded Sex Assigned at Not on file Gender Identity Not on file Sexual Orientation Not on file documented as of this encounter Plan of Treatment Scheduled Referrals Name Type Priority Associated Diagnoses Orde r Schedule Referral to Genetics Outpatient Referral Routine Family history of malignant neoplasm of breast Ordered: 01/28/2023 documented as of this encounter Visit Diagnoses Diagnosis Family history of malignant neoplasm of breast documented in this encounter Care Teams Trailer Tank Truck Driver Relationship Specialty Start Date End Date Mahesh Sanford MD [address] [place] [address] PCP - General Family Medicine 06/22/18 documented as of this encounter
--- OUTSIDE RECORDS SUMMARY | 2024-01-22 15:08 | XMS_ITS | Encounter Summary ---
Author Organization [facility] [place] [address] Care Team Providers Care Sports Team Manager Name Role Phone Mansi Dodd APRN Primary Care Provider + Encounter Details Date Type Department Care Team (Late st Contact Info) Description 05/30/2010 2:55 PM EST Office [place] [address] Baldemar Garcia MD [facility] [address] Discharge Disposition: Home Social History Tobacco Use Types Packs/Day Years Used Date Smoking Tobacco: Never Assessed Sex and Gender Information Value Date Recorded Sex Assigned at Not on file Gender Identity Not on file Sexual Orientation Not on file documented as of this encounter Plan of Treatment Not on file documented as of this encounter Visit Diagnoses Not on filedocumented in this encounter Care Teams Sports Team Manager Relationship Specialty Start Date End Date Mansi Dodd APRN PCP - General 04/30/10 06/21/18 documented as of this encounter
--- OUTSIDE RECORDS SUMMARY | 2024-01-22 15:08 | XMS_ITS | Encounter Summary ---
Author Organization [facility] Address [address] [place] [address] Care Team Providers Care Community Health Counselor Name Role Phone Mahesh Safnord MD Primary Care Provider [phone] Encounter Details Date Type Department Care Team (Late st Contact Info) Description 09/11/2022 Lab Requisition [facility] Pathology & Laboratory Medicine - [facility] [address] [place] [address] Marah Wise [address] [place] [address] [place] [phone] Encounter for other general examination Social History [...] Date/Time Associated Diagnosis Comments PAP TEST Today 09/10/2022 3:30 EDT Encounter for other general examination HPV DNA DETECTION WITH GENOTYPING, PCR Today 09/10/2022 3:30 EDT Encounter for other general examination documented in this encounter Results * HUMAN PAPILLOMAVIRUS (HPV) DETECTION-HIGH RISK TYPES (09/10/2022 3:30 EDT) HPV other High Risk types, PCR Negative Negative 09/23/2022 15:35 EDT [facility] Comment:No E6 or E7 mRNA is detected from HPV types 16,18,31,33,35,39,45,51,52,56,58,59,66, and 68 by warehouse laborer mediated amplification. Papanicolaou smear specimen (specimen) CERVIX UTERI STRUCTURE / Unknown 09/10/2022 3:30 EDT 09/19/2022 11:33 EDT Marah Wise MICROBIOLOGY - GENER AL ORDERABLES [facility] [address] [place] [address] * PAP TEST (09/10/2022 3:30 EDT) Specimens A. Cervix and/or Endocervix , ThinPrep Imaging System with Manual Evaluation 09/23/2022 15:35 T [facility] Specimen Adequacy Satisfactory for Evaluation - transformation zone component absent 09/23/2022 15:35 [facility] General Categorization Negative for intraepithelial lesion or malignancy 09/23/2022 15:35 [facility] Attestation . 09/23/2022 15:35 [facility] at 1535 Clinical History See below 09/24/19 23 15:35 T [facility] HPV The result for the Human Papillomavirus (HPV) Detection-High Risk Types is Negative. No E6 or E7 mRNA is detected from HPV types 16,18,31,33,35,39 ,45,51,52,56,58,5 9,66, and 68 by warehouse laborer mediated amplification.Kaylie ting was performed on specimen [id number] and was resulted on 09/23/2022 1535 EDT by KELIVN, LAB INSTRUMENT RESULTS IN 09/23/2022 15:35 T [facility] Performing Lab [facility] 09/23/2022 15:35 T [facility] Scanned Images 09/23/2022 15:35 EDT [facility] Papanicolaou smear specimen (specimen) CERVIX UTERI STRUCTURE / Unknown 09/10/2022 3:30 EDT 09/11/2022 9:06 EDT Marah Wise PATHOLOGY ORDERABLES [facility] [address] [place] [address] documented in this encounter Visit Diagnoses Diagnosis Encounter for other general examination documented in this encounter Care Teams Community Health Counselor Relationship Specialty Start Date End Date Mahesh Sanford MD [address] [place] [address] PCP - General 12/06/21 documented as of this encounter
--- OUTSIDE RECORDS SUMMARY | 2024-01-22 15:08 | XMS_ITS | Encounter Summary ---
[place] [address] Care Team Providers Care Parts Counter Clerk Name Role Phone Mahesh Sanford MD Primary Care Provider [phone] Encounter Details Date Type Department Care Team (Late st Contact Info) Description 06/22/2018 Telephone [place] [phone] Misa Dickerson Social History Tobacco Use Types Packs/Day Years Used Date Smoking Tobacco: Never Assessed Sex and Gender Information Value Date Recorded Sex Assigned at Not on file Gender Identity Not on file Sexual Orientation Not on file documented as of this encounter Miscellaneous Notes * Telephone Encounter - Misa Dickerson - 06/22/2018 9:39 AM EST Spoke with Sheryl regarding the referral for the Bariatric program. She is going to see if she can get the time off from work for the Jul intro and call me back and register accordingly documented in this encounter Plan of Treatment Not on file documented as of this encounter Visit Diagnoses Not on filedocumented in this encounter Care Teams Parts Counter Clerk Relationship Specialty Start Date End Date Mahesh Sanford MD [address] [place] [address] [facility] [place] [phone] PCP - General Family Medicine 06/22/18 documented as of this encounter
--- OUTSIDE RECORDS SUMMARY | 2024-01-22 15:08 | XMS_ITS | Encounter Summary ---
[place] [address] Care Team Providers Care Repairer Cylinder Heads Name Role Phone Mahesh Sanford MD Primary Care Provider [phone] Encounter Details Date Type Department Care Team (Late st Contact Info) Description 05/20/2021 2:00 PM EST Notes Only [place] [id number] Social History Tobacco Use Types Packs/Day Years Used Date Smoking Tobacco: Never Assessed Sex and Gender Information Value Date Recorded Sex Assigned at Not on file Gender Identity Not on file Sexual Orientation Not on file documented as of this encounter Progress Notes * Roxanne Baldwin - 05/20/2021 2:00 PM EST Patient attended the Introduction to Bariatric Surgery for [place] program. 05/21/2021 documented in this encounter Plan of Treatment Not on file documented as of this encounter Visit Diagnoses Not on filedocumented in this encounter Care Teams Repairer Cylinder Heads Relationship Specialty Start Date End Date Mahesh Sanford MD [address] [place] [address] [place] [phone] PCP - General Family Medicine 06/22/18 documented as of this encounter
--- OUTSIDE RECORDS SUMMARY | 2024-01-22 15:08 | XMS_ITS | Clinical Summary ---
Author Organization [facility] [place] [address] Care Team Providers Care Centerpuncher Name Role Phone Mahesh Sanford MD Primary Care Provider [phone] Allergies Active Allergy Reactions Criticality Noted Date Comments Avocado High CIS - severe abd pain Cat/Feline Products Medium CIS - Allergic Rhinitis Sulfa (Sulfonamide Antibiotics) Medium CIS - Rash Medications Medication Sig Dispensed Refills Start Date End Date Status esomeprazole (NEXIUM) 40 mg capsule 05/30/2010 Active citalopram (CELEXA) 20 mg tablet 05/30/2010 Active acyclovir (ZOVIRAX) 200 mg capsule 05/30/2010 Active multivitamin (THERAGRAN) tablet 05/30/2010 Active Calcium Carbonate-Vitamin D3 (CALCIUM 600 WITH VITAMIN D3) 600 mg(1,500mg) -400 unit Cap 05/30/2010 Active ibuprofen (ADVIL;MOTRIN) 200 mg tablet 05/30/2010 Active diphenhydrAMINE (BENADRYL ALLERGY) 25 mg tablet 05/30/2010 Active loratadine (CLARITIN) 10 mg tablet 05/30/2010 Active Social History Tobacco Use Types Packs/Day Years Used Date Smoking Tobacco: Never Assessed Sex and Gender Information Value Date Recorded Sex Assigned at Not on file Gender Identity Not on file Sexual Orientation Not on file Plan of Treatment Health Maintenance Due Date Last Done Comments CT Colonography 1973 Colonoscopy 1975 Colorectal Cancer Screening 1975 FIT DNA 1975 FIT 1975 Sigmoidoscopy (10 year) with FIT yearly 1975 Sigmoidoscopy 1975 HIV screen 11/29/1991 Hepatitis C Screening 11/29/1991 Hepatitis B vaccine (0-59 yrs) (1) 1992 Tdap adult 1992 Tetanus vaccine 1992 HPV test 11/29/2003 PAP Smear 11/29/2003 Breast Cancer Share Decision Needed 2013 Breast Cancer screening 2013 Covid-19 Vaccine (1 - 2022- season) 2023 Zoster vaccine (1 of 2) 11/29/2023 Influenza (Flu) vaccine (1 o f 1 - Influenza standard series) 02/07/2024 Care Teams Centerpuncher Relationship Specialty Start Date End Date Mahesh Sanford MD [facility] [place] [id number] PCP - General Family Medicine 06/22/18
--- OUTSIDE RECORDS SUMMARY | 2024-01-22 15:08 | XMS_ITS | Encounter Summary ---
Author Organization Health system Address [address] [place] [address] Care Team Providers Care Transporter Radiology Name Role Phone Mansi Dodd NP Primary Care Provider Reason for Visit * Reason Comments Pharyngitis Pt c/o sore throat y esterday, worse last night, painful to swallow anything. Associated with fatique and chills. Encounter Details Date Type Department Care Team (Late st Contact Info) Description 08/24/2013 8:15 EDT - 08/24/2013 9:36 EDT Emergency [facility] Emergency Department - Main [place] [address] [place] [address] Renato Newberry MD Emergency, MD Sabrina Gaffney (Primary Dx); Fever Discharge Disposition: Home or Self Care Social History Tobacco Use Types Packs/Day Years Used Date Smoking Tobacco: Former Alcohol Use Standard Drinks/Week Comments Yes 0 (1 standard drink = 0.6 oz pur e alcohol) 2-3 glases wine daily Sex and Gender Information Value Date Recorded Sex Assigned at Not on file Gender Identity Not on file Sexual Orientation Not on file documented as of this encounter Last Filed Vital Signs Vital Sign Reading [...] Body Mass Index 38.75 08/24/2013 0823 EDT documented in this encounter Discharge Instructions * Discharge Instructions* Renato Newberry MD - 08/24/2013 9:22 EDT I feel this is most likely a viral illness and will resolve in the next few days Use tylenol and advil for pain and fever control Lots liquids, rest I have sent a strep test and we will call you if it is positive and prescribe antibiotics Return if worsening symptoms documented in this encounter Medications at Time of Discharge Medication Sig Dispensed Refills Start Date End Date ACYCLOVIR (ZOVIRAX ORAL) Take by mouth daily Uncertain dose . acyclovir (ZOVIRAX) 5 % ointment Apply topically every 3 hours As needed . citalopram (CELEXA) 20 mg tablet Take 20 mg by mouth daily. esomeprazole (NEXIUM) 20 mg capsule Take 20 mg by mouth daily. UNABLE TO FIND Control Pills . documented as of this encounter Discharge Disposition Disposition Code Departure Means Destination Home or Self Nursing Home documented in this encounter ED Notes * Renato Newberry MD - 08/24/2013 194 EDT DOS: 08/24/2013 Chief Complaint Patient presents with ??? Pharyngitis Pt c/o sore throat yesterday, worse last night, painful to swallow anything. Associated with fatique and chills. The patient is a 37 y.o. female who presents today with Pharyngitis HPI Comments: 24 hr hx sorethroat, fatigue, chills, feverish feeling Mod headache, body aches and some diarrhea yesterday No blood Generally healthy The history is provided by the patient. Pharyngitis Associated symptoms: fever and headaches Associated symptoms: no abdominal pain, no chest pain, no chills, no cough, no neck stiffness, no rash and no shortness of breath Review of Systems Constitutional: Positive for fever and fatigue. Negative for chills. HENT: Positive for sore throat. Negative for neck stiffness. Eyes: Negative for visual disturbance. Respiratory: Negative for cough and shortness of breath. Cardiovascular: Negative for chest pain. Gastrointestinal: Negative for abdominal pain. Genitourinary: Negative for dysuria. Musculoskeletal: Positive for myalgias. Negative for back pain. Skin: Negative for rash. Neurological: Positive for headaches. Psychiatric/Behavioral: Negative for confusion. All other systems reviewed and are negative. History reviewed. No pertinent past medical history. History reviewed. No pertinent past surgical history. Allergies Allergen Reactions ??? Sulfa (Sulfonamide Antibiotics) Rash And swelling History Substance Use Topics ??? Smoking status: Former Smoker ??? Smokeless tobacco: Not on file ??? Alcohol Use: Yes Comment: 2-3 glases wine daily No family history on file. Vital Signs Temp: 37.7 ??C (99.9 ??F) Temp src: Tympanic Pulse: 112 Resp: 18 SpO2: 100 % SpCO: 4 % BP: 147/103 mmHg BP Device: BP Machine Physical Exam Nursing note and vitals reviewed. Constitutional: She is oriented to person, place, and time. She appears well- developed and well-nourished. HENT: Head: Normocephalic and atraumatic. Right Ear: External ear normal. Left Ear: External ear normal. Nose: Nose normal. No post pharynx redness or exudate Eyes: Conjunctivae are normal. Pupils are equal, round, and reactive to light. Right eye exhibits no discharge. Left eye exhibits no discharge. Neck: Normal range of motion. Neck supple. No tracheal deviation present. Cardiovascular: Normal rate, regular rhythm and normal heart sounds. Pulmonary/Chest: Effort normal and breath sounds normal. No respiratory distress. Abdominal: Soft. There is no tenderness. Musculoskeletal: Normal range of motion. Lymphadenopathy: She has no cervical adenopathy. Neurological: She is alert and oriented to person, place, and time. She has normal strength. No sensory deficit. Skin: No rash noted. Psychiatric: She has a normal mood and affect. Radiology orders: None Imaging Results None Procedures ED Course: A medical screening exam was performed. Sent strep culture Feel most likely viral illness Disposition: Discharged The patient's pain was managed to an adequate level weighing risk vs. benefit of further medications. Upon departure from the Emergency Department, the patient's pain was 3 on a zero to ten scale. Condition at departure from the Emergency Department: Good Discharge Medication List as of 08/24/2013 9:22 CONTINUE these medications which have NOT CHANGED Details ACYCLOVIR (ZOVIRAX ORAL) Take by mouth daily Uncertain dose ., Historical Med acyclovir (ZOVIRAX) 5 % ointment Apply topically every 3 hours As needed ., topical, Historical Med citalopram (CELEXA) 20 mg tablet Take 20 mg by mouth daily., Historical Med esomeprazole (NEXIUM) 20 mg capsule Take 20 mg by mouth daily., Historical Med UNABLE TO FIND Control Pills ., Historical Med MDM Number of Diagnoses or Management Options Fever: Sorethroat: Diagnosis management comments: 3 Final diagnoses: Sorethroat Fever PCP: Mansi Dodd NP 08/24/2013 19:45 * Lovely Zuniga RN - 08/24/2013 0935 EDT Discharge instructions reviewed with patient. Patient able to verbalize good understanding of information as presented. * April Flood RN - 08/24/2013 0822 EDT Here while daughter is getting an MRI. documented in this encounter Plan of Treatment Not on file documented as of this encounter Procedures Procedure Name Priority Date/Time Associated Diagnosis Comments GROUP A STREP CULTURE Routine 08/24/2013 9:22 EDT documented in this encounter Results * PHARYNGITIS CULTURE (08/24/2013 9:22 EDT) Specimen Description Throat [facility] Result Heavy STREPTOCOCCUS , BETA HEMOLYTIC GROUP A (STREPTOCOCCU S PYOGENES) [facility] Report Status 08/25/2013 Final [facility] Specimen of unknown material (specimen) ENTIRE THROAT / Unknown 08/24/2013 9:22 EDT 08/24/2013 10:50 EDT Renato Newberry MD MICROBIOLOGY - GENE RAL ORDERABLES [facility] [address] [place] [address] documented in this encounter Visit Diagnoses Diagnosis Sorethroat- Primary Acute pharyngitis Fever Fever, unspecified documented in this encounter Administered Medications Inactive Administered Medications - up to 3 most recent administrations Medication Order MAR Action Action Date Dose Rate Site acetaminophen (TYLENOL) tablet 1,000 mg 1,000 mg, oral, NOW X1, 1 dose, On Thu08/24/13 at 0930, STAT Given 08/24/2013 9:35 EDT 1,000 mg documented in this encounter Historical Medications * This list may reflect changes made after this encounter. Medication Sig Dispensed Refills Start Date End Date UNABLE TO FIND Control Pills . ACYCLOVIR (ZOVIRAX ORAL) Take by mouth daily Uncertain dose . acyclovir (ZOVIRAX) 5 % ointment Apply topically every 3 hours As needed . citalopram (CELEXA) 20 mg tablet Take 20 mg by mouth daily. esomeprazole (NEXIUM) 20 mg capsule Take 20 mg by mouth daily. added in this encounter Active and Recently Administered Medications Times are shown in EDT. Scheduled Medication Order 08/22/2013 08/23/2013 08/24/2013 acetaminophen (TYLENOL) tablet 1,000 mg (COMPLETED) 1,000 mg, oral, NOW X1, 1 dose, On Thu08/24/13 at 0930, STAT 0935 (Given - Provid er: Lovely Zuniga RN) documented in this encounter Care Teams Transporter Radiology Relationship Specialty Start Date End Date Mansi Dodd NP [address] [place] [address] [address] [place] [id number] PCP - General 12/05/11 12/05/21 documented as of this encounter
--- OUTSIDE RECORDS SUMMARY | 2024-01-22 15:08 | XMS_ITS | Encounter Summary ---
Author Organization [facility] Address [address] [place] [address] Care Team Providers Care Data Input Clerk Name Role Phone Unavailable Primary Care Provider Unavailabl e Encounter Details Date Type Department Care Team (Late st Contact Info) Description 12/29/2013 Hospital Visit [facility] Outpatient Social History Tobacco Use Types Packs/Day Years Used Date Smoking Tobacco: Never Assessed Sex and Gender Information Value Date Recorded Sex Assigned at Not on file Gender Identity Not on file Sexual Orientation Not on file documented as of this encounter Plan of Treatment Not on file documented as of this encounter Procedures Procedure Name Priority Date/Time Associated Diagnosis Comments CULTURE URINE Routine 12/29/2013 12:00 AM EDT documented in this encounter Results * CULTURE URINE (12/29/2013 12:00 AM EDT) Specimen type not specified (finding) 12/29/2013 12/29/2013 2:27 PM EDT Comment:URBD^BD VACUTAINER T RANSPORT^URBD Narrative [facility] - 12/29/2013 12:00 AM EDT ----- ------- ?? RUN DATE: 12/31/13 ? [facility] LAB LIVE ? PAGE 1 ? RUN TIME: 1150 ?Specimen Inquiry ? ----- ------- ?? PATIENT: SHERYL FORRESTER ? ACCT: [id number] LOC: ??LABS ? U: [id number] ? AGE/SX: 38/F ? ROOM: ?RE12/29/13 ?? REG DR: ??LEE ANN SHAVER ? : ?1975 ?? BED: ? DIS: ? STATUS: REG REF ?TLOC: ? ----- ------- ? SPEC #: [id number] ?MARIA G: 12/29/13UNK ?STATUS: ??COMP ? REQ #: [id number] ?RECD: 12/29/13 ? SUBM DR: LEE ANN SHAVER ? SOURCE: URINE CC ?ENTR: 12/29/13 ? OTHR DR: ? SPDESC: URBD ? ORDERED: ??UR CULT ? ----- ------- ?Procedure ? Result ? ----- ------- ?URINE CULTURE ??Final ?NO GROWTH 2 DAYS ? ----- ------- ? END OF REPORT ? Lee Ann Shaver PAC MICROBIOLOGY - GENER AL ORDERABLES [facility] [place] [address] [place] [address] documented in this encounter Visit Diagnoses Not on filedocumented in this encounter
--- OUTSIDE RECORDS SUMMARY | 2024-01-22 15:08 | XMS_ITS | Encounter Summary ---
Author Organization [facility] Address [address] [place] [address] Care Team Providers Care Dock Builder Name Role Phone Mansi Dodd NP Primary Care Provider [phone] Mahesh Sanford MD Primary Care Provider [phone] Encounter Details Date Type Department Care Team (Late st Contact Info) Description 12/06/2019 Lab Requisition [facility] Pathology & Laboratory Medicine - [facility] [address], [place] [address] Outr Resulting Lab, Provider Social History Tobacco [...] Procedure Name Priority Date/Time Associated Diagnosis Comments ZZCOVID-19 TEST [facility] PCR Today 12/06/2019 20:14 EDT COVID-19 TESTING Routine 12/06/2019 20:1 4 EDT documented in this encounter Results * COVID-19 TEST [facility] PCR (12/06/2019 20:14 EDT) Swab ENTIRE NASOPHARYNX / Unknown 12/06/2019 20:14 EDT 12/07/2019 15:51 EDT Provider Outr Resulting Lab MICROBIOLOGY - GENERAL ORDERABLES Performing Organization Address [facility] [[email or web address]] Co de Phone Number [facility] [address] [place] [address] * COVID-19 TESTING (12/06/2019 20:14 EDT) COVID-19 rt-PCR Result Negative Negative 12/07/2019 20:54 EDT [facility] Comment: This test has not been FDA cleared or approved. This test has been authorized by FDA under an EUA for use by authorized laboratories. This test has been authorized only for detection of nucleic acid from 2019-nCoV, not for any other viruses or pathogens. This test is only authorized for the duration of the declaration that circumstances exist justifying the authorization of emergency use of in vitro diagnostic tests for detection and/or diagnosis of 2019-nCoV under section 564(b)(1) of Act, 21 U.S.C ?? 360bbb-3(b) (1), unless the authorization is terminated or revoked sooner. Negative results do not preclude 2019-nCoV infection and should not be used as the sole basis for treatment or other patient management decisions. Negative results must be combined with clinical observations, patient history, and epidemiological information. Performed on the [email or web address] Fusion instrument Performing Lab [facility] 12/07/2019 20:54 EDT [facility] Swab 12/06/2019 20:1 4 EDT 12/07/2019 15:51 EDT Provider Outr Resulting Lab MICROBIOLOGY - GENERAL ORDERABLES [facility] [address] [place] [address] documented in this encounter Visit Diagnoses Not on filedocumented in this encounter Additional Health Concerns Infection Onset Date Last Indicated Resolved Time R/O COVID-19 12/06/2019 12/06/2019 12/12/2019 22:1 6 EDT documented as of this encounter Care Teams Dock Builder Relationship Specialty Start Date End Date Mansi Dodd NP [address] [place] [address] [address] [place] [address] PCP - General 12/05/11 12/05/21 Mahesh Sanford MD [address] [place] [address] PCP - General 12/06/21 documented as of this encounter
--- OUTSIDE RECORDS SUMMARY | 2024-01-22 15:08 | XMS_ITS | Encounter Summary ---
Author Organization [facility] Address [address] [place] [address] Care Team Providers Care Ball Point Splitter Name Role Phone Allison Hearn NP Primary Care Provider Encounter Details Date Type Department Care Team (Late st Contact Info) Description 07/08/2013 Results Only [facility] Laboratory Services - [facility] ([facility] [address] [place], [place] [address] Arlene Farmer, [facility] [address] [place] [address] Social History Tobacco Use Types Packs/Day Years [...] Diagnosis Comments PAP TEST- RESULT ONLY Routine 07/08/2013 0:00 EST documented in this encounter Results * PAP TEST- RESULT ONLY (07/08/2013 0:00 EST) Pathology Report: CYTOPATHOLOGY REPORT Reports generated via electronic interface contain original data; however they are lacking the format of the original report. Caution should be taken when reading/interpreti ng unformatted reports. Name: ? SHERYL WALDRON ? Accession #: ? [id number] : ? 1975 (Age: 37) ??F ?Collect Date: ? 07/08/2013 Location: ? [facility] ? Receive Date: ? 07/11/2013 Provider: ?ARLENE FARMER LEAD MANUFACTURING ENGINEERING TECH Copy to: ?ALLISON HEARN CHEMICAL PACKAGER ? Specimen/Source: ?Pap Test, Cervix/Endocervix, ThinPrep Imaging System with manual evaluation Last Menstrual Period: ? 06/21/13 Hormonal/Contracep tive Status: ? Oral contraceptives ? SPECIMEN ADEQUACY ? Satisfactory for Evaluation - transformation zone component present GENERAL CATEGORIZATION ? Negative for Intraepithelial Lesion or Malignancy ? Document reviewed and electronically signed by: ? MADINA Pereira(ASCP) ? Report Date: ??07/13/2013 14:43 End of Report [facility] 07/08/2013 07/11/2013 Arlene Farmer LEAD MANUFACTURING ENGINEERING TECH PATHOLOGY ORDERABLES [facility] [address] [place] [address] documented in this encounter Visit Diagnoses Not on filedocumented in this encounter Care Teams Ball Point Splitter Relationship Specialty Start Date End Date Allison Hearn NP [address] [place] [address] [address] [place] [address] PCP - General 12/05/11 12/05/21 documented as of this encounter
--- OUTSIDE RECORDS SUMMARY | 2024-01-22 15:08 | XMS_ITS | Encounter Summary ---
Author Organization [facility] Address [address] [place] [address] Care Team Providers Care Roll Scale Worker Name Role Phone Mahesh Sanford MD Primary Care Provider [phone] Encounter Details Date Type Department Care Team (Late st Contact Info) Description 09/11/2023 Lab Requisition [facility] Pathology & Laboratory Medicine - [facility] [address], [place] [address] Outr Resulting Lab, Provider Social History Tobacco [...] Procedure Name Priority Date/Time Associated Diagnosis Comments HEPATITIS C AB W REFLEX TO HCV RNA BY PCR Routine 09/10/2023 17:09 EDT documented in this encounter Results * HEPATITIS C AB W REFLEX TO HCV RNA BY PCR (09/10/2023 17:09 EDT) Hep C Antibody Negative Negative 09/12/2023 9:26 EDT [facility] Blood VENOUS BLOOD / Unknown 09/10/2023 17:09 EDT 09/11/2023 17:05 EDT Provider Outr Resulting Lab CHEMISTRY & BLOOD GAS ORDERABLES [facility] [address] [place] [address] documented in this encounter Visit Diagnoses Not on filedocumented in this encounter Care Teams Roll Scale Worker Relationship Specialty Start Date End Date Mahesh Sanford MD [address] [place] [address] PCP - General 12/06/21 documented as of this encounter
--- OUTSIDE RECORDS SUMMARY | 2024-01-22 15:08 | XMS_ITS | Encounter Summary ---
Author Organization [facility] Address [address] [place] [address] Care Team Providers Care Counseling Center Director Name Role Phone Unavailable Primary Care Provider Unavailabl e Encounter Details Date Type Department Care Team (Late st Contact Info) Description 01/05/2014 Hospital Visit [facility] Outpatient Social History Tobacco Use Types Packs/Day Years Used Date Smoking Tobacco: Never Assessed Sex and Gender Information Value Date Recorded Sex Assigned at Not on file Gender Identity Not on file Sexual Orientation Not on file documented as of this encounter Plan of Treatment Not on file documented as of this encounter Procedures Procedure Name Priority Date/Time Associated Diagnosis Comments URINALYSIS MICROSCOPIC ONLY Routine 01/05/2014 12:00 AM EDT URINALYSIS REFLEX SEDIMENT + CULTURE Routine 01/05/2014 12:00 AM EDT documented in this encounter Results * (ABNORMAL) URINALYSIS MICROSCOPIC ONLY (01/05/2014 12:00 AM EDT) Erythrocyte Ur Sediment NONE SEEN 0 - 5 /hpf 01/05/2014 5:47 PM EDT [facility] Leukocytes Ur Sediment NONE SEEN 0 - 5 /hpf 01/05/2014 5:48 PM EDT [facility] Squamous Epithelial Cell UR >2+(A) <=2+ 01/05/2014 5:46 PM EDT [facility] Epithelial Cells UR Sediment NOTED, TRANSITIONAL 01/05/2014 5:47 PM EDT [facility] Crystals UR Sediment NONE SEEN /hpf 01/05/2014 5:47 PM EDT [facility] Casts UR Sediment NONE SEEN /lpf 01/05/2014 5:47 PM EDT [facility] Mucus UR NONE SEEN 01/05/2014 5:47 PM EDT [facility] Reflex Culture UR? NO(A) 01/05/2014 5:48 PM EDT [facility] Comment:CULTURE NOT INDICATE D 01/05/2014 01/05/2014 4:2 4 PM EDT [facility] - 01/05/2014 12:00 AM EDT URINE,CLEAN CATCH Jose Glilette PAC URINALYSIS ORDERAB LES [facility] [place] [address] * (ABNORMAL) URINALYSIS REFLEX SEDIMENT + CULTURE (01/05/2014 12:00 AM EDT) Specimen Description UR URINE CLEAN CATCH 01/05/2014 5:38 PM [facility] Color Ur YELLOW YELLOW 01/05/2014 5:38 PM [facility] Appearance UR CLEAR CLEAR 01/05/2014 5:38 PM [facility] Specific [place] UR 1.015 1.010 - 1.030 01/05/2014 5:07 PM [facility] pH Ur 5.0 4.5 - 8.0 01/05/2014 5:07 PM [facility] Leukocyte Esterase Ur NEGATIVE NEGATIVE 01/05/2014 5:07 PM [facility] Nitrite Ur NEGATIVE NEGATIVE 01/05/2014 5:07 PM [facility] Protein UR NEGATIVE NEGATIVE mg/dl 01/05/2014 5:07 PM [facility] Glucose, Ur NORMAL NORMAL mg/dl 01/05/2014 5:07 PM [facility] Ketones Ur Ql TRACE(A) NEGATIVE 01/05/2014 5:38 PM [facility] Urobilinogen Ur NORMAL NORMAL 4 5:07 PM [facility] Hemoglobin, UR NEGATIVE NEGATIVE 01/05/2014 5:07 PM [facility] 01/05/2014 01/05/2014 4:2 4 PM EDT [facility] - 01/05/2014 12:00 AM EDT URINE,CLEAN CATCH Jose Gillette PAC MICROBIOLOGY - GEN ERAL ORDERABLES [facility] [place] [address] documented in this encounter Visit Diagnoses Not on filedocumented in this encounter
--- OUTSIDE RECORDS SUMMARY | 2024-01-22 15:09 | XMS_ITS | Encounter Summary ---
Author Organization [facility] Address [address] [place] [address] Care Team Providers Care Tipple Boss Name Role Phone Unavailable Primary Care Provider Unavailabl e Encounter Details Date Type Department Care Team (Late st Contact Info) Description 08/27/1999 Results Only [facility] [address] [place] [address] Thais Mejia MD [address] [place] [address] Social History Tobacco Use Types Packs/Day Years Used Date Smoking Tobacco: Never Assessed Sex and Gender Information Value Date Recorded Sex Assigned at Not on file Gender Identity Not on file Sexual Orientation Not on file documented as of this encounter Plan of Treatment Not on file documented as of this encounter Procedures Procedure Name Priority Date/Time Associated Diagnosis Comments CYTOPATHOLOGY Routine 08/27/1999 13:32 EST documented in this encounter Results * CYTOPATHOLOGY (08/27/1999 13:32 EST) Pathology Report: CYTOPATHOLOGY REPORT Reports generated via electronic interface contain original data; however they are lacking the format of the original report. Caution should be taken when reading/interpreti ng unformatted reports. Name: ? JESSICA FORRESTERTH MAIN ? Accession #: ? [id number] : ? 1975 (Age: 23) ??F ?Collect Date: ? 08/27/1999 Location: ?Receive Date: ? 08/27/1999 Provider: ?THAIS MEJIA MD Copy to: ?THAIS MEJIA MD ? Specimen/Source: ?Tire Spotter ThinPrep Last Menstrual Period: ? GYNECOLOGIC ??CYTOPATHOLOGY ??REPORT Name: SHERYL FORRESTER ?[facility] : 1975 ?? 23Y F ?Client ID: [id number] SS#: [id number] ? Clinician: THAIS MEJIA MD ?? Location: [facility] ??Copy to: ?? Specimen: ?Tire Spotter ThinPrep ? Source: Cervix/Endocervix ?Collected: 08/23/99 ? Received: 08/27/1999 ?LMP: 08/10/99 ? Hormone Therapy: No ? : No ? Radiation Therapy: No ?? Post : No ?Chemotherapy: No ?IUD: No ? Prev Abnormal Pap: Yes ?? Clinical Hx: Vaginal odor, nl exam. ?(Blank segal indicate information not provided on requisition) SPECIMEN ADEQUACY: ? Satisfactory For Evaluation ?? GENERAL CATEGORIZATION: ? WITHIN NORMAL LIMITS ? Reviewed And Electronically Signed By: ? Jennifer Mehta, CT(ASCP) ? Report Date: ?? 09/03/1999 inSilica Archived Tests - Final Diagnosis Text Field: Clinical History : ;Vaginal odor, nl exam. ? Document reviewed and electronically signed by: ? Conversion ? Report Date: ??09/03/1999 00:00 End of Report [facility] 08/27/1999 13:3 2 EST 08/27/1999 13:33 EST Thais Mejia MD PATHOLOGY ORDERABLES Performing Organization Address City/State/[facility] Co de Phone Number [facility] [address] [place] [address] documented in this encounter Visit Diagnoses Not on filedocumented in this encounter
--- OUTSIDE RECORDS SUMMARY | 2024-01-22 15:09 | XMS_ITS | Encounter Summary ---
Author Organization [facility] Address [address] [place] [address] Care Team Providers Care Medical Review Specialist Name Role Phone Unavailable Primary Care Provider Unavailabl e Encounter Details Date Type Department Care Team (Late st Contact Info) Description 10/03/2003 Results Only [facility] - Maple conversion [address] [place] [address] Arlene Farmer, [facility] [address] [place] [phone] Social History Tobacco Use Types Packs/Day Years Used Date Smoking Tobacco: Never Assessed Sex and Gender Information Value Date Recorded Sex Assigned at Not on file Gender Identity Not on file Sexual Orientation Not on file documented as of this encounter Plan of Treatment Not on file documented as of this encounter Procedures Procedure Name Priority Date/Time Associated Diagnosis Comments CYTOPATHOLOGY Routine 10/03/2003 0:00 EDT documented in this encounter Results * CYTOPATHOLOGY (10/03/2003 0:00 EDT) Pathology Report: CYTOPATHOLOGY REPORT Reports generated via electronic interface contain original data; however they are lacking the format of the original report. Caution should be taken when reading/interpreti ng unformatted reports. Name: ? CHIVO SHERYL MANI ? Accession #: ? [id number] : ? 1975 (Age: 27) ??F ?Collect Date: ? 10/03/2003 Location: ? [facility] ? Receive Date: ? 10/05/2003 Provider: ?ARLENE FARMER LEAFLET OR NEWSPAPER DELIVERER Copy to: ? Specimen/Source: ?ThinPrep Pap Test, Cervix/Endocervix Last Menstrual Period: ? 09/10/03 Treatment History: ? Cryotherapy: 1995 Other: ? HPVA - HPV testing requested if ASC-US on the current ThinPrep Pap test. ? SPECIMEN ADEQUACY ? Satisfactory for Evaluation - transformation zone component absent GENERAL CATEGORIZATION ? Negative for Intraepithelial Lesion or Malignancy ? Document reviewed and electronically signed by: ? MADINA Faye(ASCP) ? Report Date: ??10/09/2003 10:02 End of Report [facility] 10/03/2003 10/05/2003 Arlene Farmer LEAFLET OR NEWSPAPER DELIVERER PATHOLOGY ORDERABLES [facility] [address] [place] [address] documented in this encounter Visit Diagnoses Not on filedocumented in this encounter
--- OUTSIDE RECORDS SUMMARY | 2024-01-22 15:09 | XMS_ITS | Encounter Summary ---
Author Organization [facility] Address [address] [place] [address] Care Team Providers Care Grout Machine Operator Name Role Phone Unavailable Primary Care Provider Unavailabl e Encounter Details Date Type Department Care Team (Late st Contact Info) Description 10/02/2004 Results Only [facility] - Maple conversion [address] [place] [address] Arlene Farmer, [facility] [address] [place] [phone] Social History Tobacco Use Types Packs/Day Years Used Date Smoking Tobacco: Never Assessed Sex and Gender Information Value Date Recorded Sex Assigned at Not on file Gender Identity Not on file Sexual Orientation Not on file documented as of this encounter Plan of Treatment Not on file documented as of this encounter Procedures Procedure Name Priority Date/Time Associated Diagnosis Comments CYTOPATHOLOGY Routine 10/02/2004 0:00 EDT documented in this encounter Results * CYTOPATHOLOGY (10/02/2004 0:00 EDT) Pathology Report: CYTOPATHOLOGY REPORT Reports generated via electronic interface contain original data; however they are lacking the format of the original report. Caution should be taken when reading/interpreti ng unformatted reports. Name: ? CHIVO SHERYL MAIN ? Accession #: ? [id number] : ? 1975 (Age: 28) ??F ?Collect Date: ? 10/02/2004 Location: ? [facility] ? Receive Date: ? 10/04/2004 Provider: ?ARLENE FARMER GAUGE OPERATOR Copy to: ? Specimen/Source: ?ThinPrep Pap Test, Cervix/Endocervix Last Menstrual Period: ? 08/22/04 Previous Gynecologic Pathology: ? HPV: + 1995 ASC-US: 1995 & LSIL: Treatment History: ? Cervical biopsy: marked acute & chr inflammation with extensive reactive epithelial changes with repair, dysplasia is not indentified Colposcopy: LSIL Cervical biopsy: acute & chr cervicitis koilocytotic atypia Cryotherapy Other: ? Additional clinical information: neg., paps neg since HPVA - HPV testing requested if ASC-US on the current ThinPrep Pap test. ? SPECIMEN ADEQUACY ? Satisfactory for Evaluation - transformation zone component present GENERAL CATEGORIZATION ? Negative for Intraepithelial Lesion or Malignancy ? Document reviewed and electronically signed by: ? JOSÉ MIGUEL Mejia(ASCP) ? Report Date: ??10/09/2004 11:18 End of Report [facility] 10/02/2004 10/04/2004 Arlene Farmer GAUGE OPERATOR PATHOLOGY ORDERABLES [facility] [address] [place] [address] documented in this encounter Visit Diagnoses Not on filedocumented in this encounter
--- OUTSIDE RECORDS SUMMARY | 2024-01-22 15:09 | XMS_ITS | Encounter Summary ---
Author Organization [facility] Address [address] [place] [address] Care Team Providers Care Visual Developer Name Role Phone Allison Hearn NP Primary Care Provider Encounter Details Date Type Department Care Team (Late st Contact Info) Description 01/09/2012 Results Only [facility] Laboratory Services - [facility] ([facility] [address] [place], [place] [address] Arlene Farmer, [facility] [address] [place] [phone] Social History Tobacco Use Types [...] Diagnosis Comments PAP TEST- RESULT ONLY Routine 01/09/2012 0:00 EDT documented in this encounter Results * PAP TEST- RESULT ONLY (01/09/2012 0:00 EDT) Pathology Report: CYTOPATHOLOGY REPORT Reports generated via electronic interface contain original data; however they are lacking the format of the original report. Caution should be taken when reading/interpreti ng unformatted reports. Name: ? SHERYL WALDRON ? Accession #: ? [id number] : ? 1975 (Age: 36) ??F ?Collect Date: ? 01/09/2012 Location: ? [facility] ? Receive Date: ? 01/12/2012 Provider: ?ARLENE FARMER SHUTTLE TRUCK DRIVER Copy to: ?ALLISON HEARN RADIOTELEPHONE TECHNICAL OPERATOR ? Specimen/Source: ?Pap Test, Cervix/Endocervix, ThinPrep Imaging System with manual evaluation Last Menstrual Period: ? 12/31/11 Hormonal/Contracep tive Status: ? Oral contraceptives ? SPECIMEN ADEQUACY ? Satisfactory for Evaluation - transformation zone component present GENERAL CATEGORIZATION ? Negative for Intraepithelial Lesion or Malignancy ? Document reviewed and electronically signed by: ? MADINA Houston(ASCP) ? Report Date: ??01/15/2012 16:33 End of Report [facility] 01/09/2012 01/12/2012 Arlene Farmer SHUTTLE TRUCK DRIVER PATHOLOGY ORDERABLES [facility] [address] [place] [address] documented in this encounter Visit Diagnoses Not on filedocumented in this encounter Care Teams Visual Developer Relationship Specialty Start Date End Date Allison Hearn NP [address] [place] [address] [address] [place] [phone] PCP - General 12/05/11 12/05/21 documented as of this encounter
--- OUTSIDE RECORDS SUMMARY | 2024-01-22 15:09 | XMS_ITS | Encounter Summary ---
Author Organization [facility] Address [address] [place] [address] Care Team Providers Care Syrup Mixer Name Role Phone Unavailable Primary Care Provider Unavailabl e Encounter Details Date Type Department Care Team (Late st Contact Info) Description 12/02/2011 Results Only [facility] Laboratory Services - [facility] ([facility] [place] [place] [address] [place], [place] [phone] Brooks Fitzpatrick MD [address] [place] [phone] Social History Tobacco Use Types Packs/Day Years Used Date Smoking Tobacco: Never Assessed Sex and Gender Information Value Date Recorded Sex Assigned at Not on file Gender Identity Not on file Sexual Orientation Not on file documented as of this encounter Plan of Treatment Not on file documented as of this encounter Procedures Procedure Name Priority Date/Time Associated Diagnosis Comments SURGICAL PATHOLOGY Routine 12/02/2011 0:00 EDT documented in this encounter Results * SURGICAL PATHOLOGY (12/02/2011 0:00 EDT) Pathology Report: SURGICAL PATHOLOGY REPORT Reports generated via electronic interface contain original data; however they are lacking the format of the original report. Caution should be taken when reading/interpreti ng unformatted reports. Name: ? SHERYL WALDRON MAIN ? Accession #: ? [id number] ? : ? 1975 (Age: 36) ??F ? Collect Date: ? 12/02/2011 ? Location: ? [facility] ? Receive Date: ? 12/03/2011 ? Provider: BROOKS FITZPATRICK MD Copy to: ALLISON HEARN WATCH GUARD GATE ? Final Pathologic Diagnosis: ? Skin of thigh, left lateral upper, excisional biopsy 1. ?Melanocytic nevus, compound congenital type. ? - Nevus extends focally to superior and inferior margins. Microscopic Description: ? Sections consist of a circumscribed, symmetric proliferation of melanocytes with both epidermal and dermal components. ??The junctional melanocytes are arranged mainly in nests that are relatively large and variable in shape. ??The dermal melanocytes form nests and cords that diminish in size with descent into the dermis. ??The melanocytes preferentially extend around follicles, eccrine units, and the neurovascular plexus. ??Individual melanocytes splay dermal collagen bundles and infiltrate opal arrector muscle. ??The melanocytes are slightly enlarged but have round-oval nuclei and a moderate amount of cytoplasm. The dermal melanocytes show industrial technology education teacher maturation. ??(Dr. Andrade)/[facility] Document reviewed and electronically signed by: SHERRELL ANDRADE MD Report ??Date: 12/05/2011 15:46 By the signature above, the attending physician certifies that he/she has personally conducted a gross and/or microscopic examination of the described specimens and rendered or confirmed the above diagnosis. Specimen(s) Received: ? Excisional biopsy skin lesion L lateral upper thigh with suture on superior aspect of specimen Clinical History: ? Not listed Gross Description: ? Received in formalin labelled Sheryl Waldron and excisional biopsy skin lesion left lateral upper thigh with suture in superior aspect of specimen is an elliptical excision of vargas-white skin, oriented with a suture along one edge indicating superior. ??As the specimen is from the left lateral upper thigh, this superior suture is presumed to correspond to proximal. ??The specimen is 1.4 cm from anterior to posterior by 0.8 cm from superior to inferior and is excised to a depth of 0.7 cm. ??The superior margin is inked blue and the inferior margin is inked black. ??On the epidermal surface there is an ill-defined 1.0 x 0.7 cm vargas-brown mottled irregular macule. The specimen is serially sectioned from anterior to posterior and entirely submitted as follows: BLOCK BURKETT A1 ?Anterior tip, reverse en face A2, A3 ?Central sections A4 ?Posterior tip, reverse en face (Asmita Leos)/[facility] End of Report [facility] 12/02/2011 12/03/2011 21: 42 EDT Brooks Fitzpatrick MD PATHOLOGY ORDERABLES [facility] [address] [place] [address] documented in this encounter Visit Diagnoses Not on filedocumented in this encounter
--- OUTSIDE RECORDS SUMMARY | 2024-01-22 15:09 | XMS_ITS | Encounter Summary ---
Author Organization [facility] Address [address] [place] [address] Care Team Providers Care Hand Sizer Name Role Phone Unavailable Primary Care Provider Unavailabl e Encounter Details Date Type Department Care Team (Late st Contact Info) Description 09/01/2000 Results Only [facility] - Maple conversion [address] [place] [address] Arlene Farmer, [facility] [address] [place] [phone] Social History Tobacco Use Types Packs/Day Years Used Date Smoking Tobacco: Never Assessed Sex and Gender Information Value Date Recorded Sex Assigned at Not on file Gender Identity Not on file Sexual Orientation Not on file documented as of this encounter Plan of Treatment Not on file documented as of this encounter Procedures Procedure Name Priority Date/Time Associated Diagnosis Comments CYTOPATHOLOGY Routine 09/01/2000 0:00 EST documented in this encounter Results * CYTOPATHOLOGY (09/01/2000 0:00 EST) Pathology Report: CYTOPATHOLOGY REPORT Reports generated via electronic interface contain original data; however they are lacking the format of the original report. Caution should be taken when reading/interpreti ng unformatted reports. Name: ? JESSICA WALDRONTH MAIN ? Accession #: ? [id number] : ? 1975 (Age: 24) ??F ?Collect Date: ? 09/01/2000 Location: ? [facility] ? Receive Date: ? 09/03/2000 Provider: ?ARLENE FARMER OPEN DIE INSPECTOR Copy to: ? Specimen/Source: ?ThinPrep Pap Test, Cervix/Endocervix Last Menstrual Period: ? 08/06/00 Previous Gynecologic Pathology: ? ASC-US: favor HPV effect, epithelial cell abnormality Treatment History: ? Cryotherapy: NL since ? SPECIMEN ADEQUACY ? Satisfactory for evaluation but limited by an absence of a transformation zone component. GENERAL CATEGORIZATION ? Within Normal Limits ? Document reviewed and electronically signed by: ? MADINA Pereira(ASCP) ? Report Date: ??09/04/2000 09:04 End of Report [facility] 09/01/2000 09/03/2000 Arlene Farmer OPEN DIE INSPECTOR PATHOLOGY ORDERABLES [facility] [address] [place] [address] documented in this encounter Visit Diagnoses Not on filedocumented in this encounter
--- OUTSIDE RECORDS SUMMARY | 2024-01-22 15:09 | XMS_ITS | Encounter Summary ---
Author Organization [facility] Address [address] [place] [address] Care Team Providers Care Exceptional Student Education Aide Name Role Phone Unavailable Primary Care Provider Unavailabl e Encounter Details Date Type Department Care Team (Late st Contact Info) Description 09/07/2001 Results Only [facility] - [facility] conversion [address] [place] [address] Arlene Farmer, [facility] [address] [place] [phone] Social History Tobacco Use Types Packs/Day Years Used Date Smoking Tobacco: Never Assessed Sex and Gender Information Value Date Recorded Sex Assigned at Not on file Gender Identity Not on file Sexual Orientation Not on file documented as of this encounter Plan of Treatment Not on file documented as of this encounter Procedures Procedure Name Priority Date/Time Associated Diagnosis Comments CYTOPATHOLOGY Routine 09/07/2001 0:00 EST documented in this encounter Results * CYTOPATHOLOGY (09/07/2001 0:00 EST) Pathology Report: CYTOPATHOLOGY REPORT Reports generated via electronic interface contain original data; however they are lacking the format of the original report. Caution should be taken when reading/interpreti ng unformatted reports. Name: ? SHERYL WALDRON ? Accession #: ? [id number] : ? 1975 (Age: 25) ??F ?Collect Date: ? 09/07/2001 Location: ? [facility] ? Receive Date: ? 09/09/2001 Provider: ?ARLENE FARMER NODULIZER Copy to: ? Specimen/Source: ?ThinPrep Pap Test, Cervix/Endocervix Last Menstrual Period: ? 08/29/01 Previous Gynecologic Pathology: ? Yes Treatment History: ? Cryotherapy: 1996 Other: ? Additional clinical information: Paps WNL since ? SPECIMEN ADEQUACY ? Satisfactory for Evaluation - transformation zone component present GENERAL CATEGORIZATION ? Negative for Intraepithelial Lesion or Malignancy ? Document reviewed and electronically signed by: ? MADINA Pereira(ASCP) ? Report Date: ??09/14/2001 13:44 End of Report [facility] 09/07/2001 09/09/2001 Arlene Farmer NODULIZER PATHOLOGY ORDERABLES [facility] [address] [place] [address] documented in this encounter Visit Diagnoses Not on filedocumented in this encounter
--- OUTSIDE RECORDS SUMMARY | 2024-01-22 15:09 | XMS_ITS | Encounter Summary ---
Author Organization [facility] Address [address] [place] [address] Care Team Providers Care Thread Cutter Tender Name Role Phone Unavailable Primary Care Provider Unavailabl e Encounter Details Date Type Department Care Team (Late st Contact Info) Description 07/17/2009 Orders Only [facility] Laboratory Services - [facility] ([facility] [place] [address] [place], [place] [address] Arlene Farmer, [facility] [address] [place] [phone] Social History Tobacco Use Types Packs/Day Years Used Date Smoking Tobacco: Never Assessed Sex and Gender Information Value Date Recorded Sex Assigned at Not on file Gender Identity Not on file Sexual Orientation Not on file documented as of this encounter Plan of Treatment Not on file documented as of this encounter Procedures Procedure Name Priority Date/Time Associated Diagnosis Comments CYTOPATHOLOGY Routine 07/17/2009 0:00 EST documented in this encounter Results * CYTOPATHOLOGY (07/17/2009 0:00 EST) Pathology Report: CYTOPATHOLOGY REPORT ? Reports generated via electronic interface contain original data; ? however they are lacking the format of the original report. ? Caution should be taken when reading/interpreti ng unformatted reports. ? Name: ? SHERYL WALDRON ? Accession #: ? [id number] ? : ? 1975 (Age: 33) ??F ?Collect Date: ? 07/17/2009 ? Location: ? [facility] ? Receive Date: ? 07/18/2009 ? Provider: ?ARLENE MARIANO RESIDENT INTERN ? Copy to: ? Specimen/Source: ?Pap Test, Cervix/Endocervix, ThinPrep Imaging System ? with manual evaluation ? Last Menstrual Period: ? 1/10/10 ? Previous Gynecologic Pathology: ? ASC-US: 1996, 8/97 ? HPV: + 1996 ? LSIL: 1/97 ? Yes: acute and chronic cervicitis ? Treatment History: ? Colposcopy: 1/97 for LSIL ? Cervical biopsy: 1/97 ? Cryotherapy ? Other: ? Additional clinical information: 9/97 pap negative paps since ? HPVA - HPV testing requested if ASC-US on the current ThinPrep Pap test. ? SPECIMEN ADEQUACY ? Satisfactory for Evaluation ? - transformation zone component present ? GENERAL CATEGORIZATION ? Negative for Intraepithelial Lesion or Malignancy ? Document reviewed and electronically signed by: ? Traci Lim, SCT(ASCP) ? Report Date: ??07/19/2009 15:07 ? End of Report ? [facility] 07/17/2009 07/18/2009 Arlene Farmer RESIDENT INTERN PATHOLOGY ORDERABLES [facility] [address] [place] [address] documented in this encounter Visit Diagnoses Not on filedocumented in this encounter
--- OUTSIDE RECORDS SUMMARY | 2024-01-22 15:09 | XMS_ITS | Encounter Summary ---
Author Organization [facility] Address [address] [place] [address] Care Team Providers Care School Adjustment Counselor Name Role Phone Unavailable Primary Care Provider Unavailabl e Encounter Details Date Type Department Care Team (Late st Contact Info) Description 09/30/2002 Results Only [facility] - Maple conversion [address] [place] [address] Arlene Farmer, [facility] [address] [place] [phone] Social History Tobacco Use Types Packs/Day Years Used Date Smoking Tobacco: Never Assessed Sex and Gender Information Value Date Recorded Sex Assigned at Not on file Gender Identity Not on file Sexual Orientation Not on file documented as of this encounter Plan of Treatment Not on file documented as of this encounter Procedures Procedure Name Priority Date/Time Associated Diagnosis Comments CYTOPATHOLOGY Routine 09/30/2002 0:00 EDT documented in this encounter Results * CYTOPATHOLOGY (09/30/2002 0:00 EDT) Pathology Report: CYTOPATHOLOGY REPORT Reports generated via electronic interface contain original data; however they are lacking the format of the original report. Caution should be taken when reading/interpreti ng unformatted reports. Name: ? CHIVO SHERYL MAIN ? Accession #: ? [id number] : ? 1975 (Age: 26) ??F ?Collect Date: ? 09/30/2002 Location: ? [facility] ? Receive Date: ? 10/03/2002 Provider: ?ARLENE FARMER ASSEMBLER BODY Copy to: ? Specimen/Source: ?ThinPrep Pap Test, Cervix/Endocervix Last Menstrual Period: ? 09/12/02 Treatment History: ? Cryotherapy: 1995 ? SPECIMEN ADEQUACY ? Satisfactory for Evaluation - transformation zone component present GENERAL CATEGORIZATION ? Negative for Intraepithelial Lesion or Malignancy ? Document reviewed and electronically signed by: ? MADINA Faye(ASCP) ? Report Date: ??10/06/2002 07:44 End of Report [facility] 09/30/2002 10/03/2002 Arlene Farmer ASSEMBLER BODY PATHOLOGY ORDERABLES Performing Organization Address City/State/[facility] Co de Phone Number [facility] [address] [place] [address] documented in this encounter Visit Diagnoses Not on filedocumented in this encounter
--- OUTSIDE RECORDS SUMMARY | 2024-01-22 15:09 | XMS_ITS | Encounter Summary ---
Author Organization [facility] Address [address] [place] [address] Care Team Providers Care Glaciologist Name Role Phone Unavailable Primary Care Provider Unavailabl e Encounter Details Date Type Department Care Team (Late st Contact Info) Description 07/10/2008 Before PRISM Converted Visit (Maple) [facility] - Maple conversion [address] [place] [address] Arlene Farmer, [facility] [address] [place] [phone] Social History Tobacco Use Types Packs/Day Years Used Date Smoking Tobacco: Never Assessed Sex and Gender Information Value Date Recorded Sex Assigned at Not on file Gender Identity Not on file Sexual Orientation Not on file documented as of this encounter Plan of Treatment Not on file documented as of this encounter Procedures Procedure Name Priority Date/Time Associated Diagnosis Comments CYTOPATHOLOGY Routine 07/10/2008 0:00 EST documented in this encounter Results * CYTOPATHOLOGY (07/10/2008 0:00 EST) Pathology Report: CYTOPATHOLOGY REPORT ? Reports generated via electronic interface contain original data; ? however they are lacking the format of the original report. ? Caution should be taken when reading/interpreti ng unformatted reports. ? Name: ? SHERYL WALDRON ? Accession #: ? [id number] ? : ? 1975 (Age: 32) ??F ?Collect Date: ? 07/10/2008 ? Location: ? [facility] ? Receive Date: ? 07/11/2008 ? Provider: ?ARLENE MARIANO BACKUP ADMINISTRATIVE COORDINATOR ? Copy to: ? Specimen/Source: ?Pap Test, Cervix/Endocervix, ThinPrep Imaging System ? with manual evaluation ? Last Menstrual Period: ? 12/31/08 ? Menstrual/Pregnanc y Status: ? Previous Gynecologic Pathology: ? ASC-US: 1996 & 08/97 ? HPV: + 1996 ? LSIL: 01/97 ? Treatment History: ? Colposcopy: / LSIL ? Cervical biopsy: acute & chr. cervicitis ? Cryotherapy ? Other: ? Additional clinical information: / pap neg., neg paps since ? HPVA - HPV testing requested if ASC-US on the current ThinPrep Pap test. ? SPECIMEN ADEQUACY ? Satisfactory for Evaluation ? - transformation zone component present ? GENERAL CATEGORIZATION ? Negative for Intraepithelial Lesion or Malignancy ? Document reviewed and electronically signed by: ? Jennifer Mehta, CT(ASCP) ? Report Date: ??07/18/2008 09:54 ? End of Report ? [facility] 07/10/2008 07/11/2008 Arlene Farmer BACKUP ADMINISTRATIVE COORDINATOR PATHOLOGY ORDERABLES [facility] [address] [place] [address] documented in this encounter Visit Diagnoses Not on filedocumented in this encounter
--- OUTSIDE RECORDS SUMMARY | 2024-01-22 15:09 | XMS_ITS | Encounter Summary ---
Author Organization [facility] Address [address] [place] [address] Care Team Providers Care Ergonomics Consultant Name Role Phone Unavailable Primary Care Provider Unavailabl e Encounter Details Date Type Department Care Team (Late st Contact Info) Description 10/03/2010 Results Only [facility] Services - [facility] ([facility]) [address], [place] [id number] Arlene Farmer, [facility] [address] [place] [id number] Social History Tobacco Use Types Packs/Day Years [...] Diagnosis Comments PAP TEST- RESULT ONLY Routine 10/03/2010 0:00 EDT documented in this encounter Results * PAP TEST- RESULT ONLY (10/03/2010 0:00 EDT) Pathology Report: CYTOPATHOLOGY REPORT ? Reports generated via electronic interface contain original data; ? however they are lacking the format of the original report. ? Caution should be taken when reading/interpreti ng unformatted reports. ? Name: ? SHERYL WALDRON ? Accession #: ? [id number] ? : ? 1975 (Age: 34) ??F ?Collect Date: ? 10/03/2010 ? Location: ? [facility] ? Receive Date: ? 10/04/2010 ? Provider: ?ARLENE MARIANO STAFF WEAPONS OFFICER ? Copy to: ? Specimen/Source: ?Pap Test, Cervix/Endocervix, ThinPrep Imaging System ? with manual evaluation ? Last Menstrual Period: ? 04/11/11 ? Previous Gynecologic Pathology: ? ASC-US: 1996 & 1997 ? HPV: + 1996 ? LSIL: 01/97 ? Treatment History: ? Colposcopy: Acute & Chr. Cervicitis ? Miscellaneous treatment: Bx ? Cryotherapy ? Other: ? Additional clinical information: Paps neg. since ? SPECIMEN ADEQUACY ? Satisfactory for Evaluation ? - transformation zone component present ? GENERAL CATEGORIZATION ? Negative for Intraepithelial Lesion or Malignancy ? Document reviewed and electronically signed by: ? Jennifer Mehta, CT(ASCP) ? Report Date: ??10/09/2010 09:24 ? End of Report ? [facility] 10/03/2010 10/04/2010 Arlene Farmer STAFF WEAPONS OFFICER PATHOLOGY ORDERABLES [facility] [address] [place] [address] documented in this encounter Visit Diagnoses Not on filedocumented in this encounter
[2024-01-26 05:18] LABS: Methylphenidate Negative ng/mL (Cutoff: 10); Ritalinic Acid 3653 ng/mL (Cutoff: 50)
== END 2024-01-22 15:07 | disposition home or self-care (01) ==
LOC: NCHCN 15:06
PROVIDERS: PCP Student in an Organized Health Care Education/Training Program; Visit Provider Student in an Organized Health Care Education/Training Program
DX: F90.0 Attention-deficit hyperactivity disorder, predominantly inattentive type (principal)
CPT/HCPCS: 80360

== ENCOUNTER 2024-08-23 16:53 | Emergency (ER) | payer OTHER, SELFPAY ==
[2024-08-23 16:54] VITALS: BP 138/72; PULSE 79; RESP 12; TEMP 36.5; O2SAT 99
[2024-08-23 17:30] VITALS: RESP 16
[2024-08-23 17:56] VITALS: BP 146/66; PULSE 78; RESP 16; TEMP 36.6; O2SAT 98
--- NOTE | 2024-08-23 20:29 | ED.GENADUL_ITS ---
Discharge Plan Disposition Patient Disposition: Home Condition: Stable Discharge Details Clinical Impression: Leg pain Primary Care Provider: Sam Hines ED Provider: Janett Sarkar Home Meds and New Rx's Prescriptions: No Action multivitamin [Multiple Vitamins] Tablet 1 tab PO DAILY liraglutide [Victoza 2-Clayton] 0.6 mg/0.1 mL (18 mg/3 mL) pen injector 1.2 mg subcut DAILY acyclovir [Zovirax] 2 GM cream 2 gm Topical PRN valacyclovir [Valtrex] 500 MG tablet 500 mg PO DAILY Patient Comments: PRN citalopram [Celexa] 10 mg tablet 20 mg PO DAILY esomeprazole magnesium [Nexium] 20 MG capsule,delayed release(DR/EC) 20 mg PO DAILY Patient Comments: Pt states now taking BID trazodone 50 mg tablet 50 mg PO DAILY PRN naltrexone 50 MG tablet 50 mg PO DAILY Discharge Instructions Additional Instructions: Try heat and anti-inflammatories overnight, but if symptoms are not improving an outpatient ultrasound has been ordered for you Discharge Data Discharge Date/Time-TO BE ENTERED AT DEPARTURE: 08/23/24 17:56 HPI General Date/Time Provider Initiated Documentation: 08/23/24 16:59 . Limitations to Documentation: no limitations . Information obtained by: patient . HPI Narrative: 48-year-old female without significant past medical history presents for evaluation of left leg pain. She reports that her left inner thigh has been hurting since Thursday, she reports that the pain is to the touch. It is not associated with swelling. She recently did take an airplane trip took [employer] Otherwise she does not smoke, take an hormonal therapy, no prior history of DVT. She contacted her PCP for evaluation and they sent her to the emergency department to be seen for possible blood clot. Related Data Home Medications ?Medication ?Instructions ?Recorded ?Confirmed esomeprazole magnesium 20 mg 20 mg PO DAILY 12/27/12 08/23/24 capsule,delayed release (Nexium) acyclovir 5 % topical cream 2 gm topical PRN 07/08/13 08/23/24 (Zovirax) valacyclovir 500 mg tablet 500 mg PO DAILY 07/08/13 08/23/24 (Valtrex) naltrexone 50 mg tablet 50 mg PO DAILY 07/21/17 08/23/24 citalopram 10 mg tablet (Celexa) 20 mg PO DAILY 08/29/21 08/23/24 multivitamin (Multiple Vitamins 1 tab PO DAILY 10/09/22 08/23/24 tablet) liraglutide 0.6 mg/0.1 mL (18 mg/3 1.2 mg subcut DAILY 11/17/23 08/23/24 mL) subcutaneous pen injector (Victoza 2-Clayton) trazodone 50 mg tablet 50 mg PO DAILY PRN 11/17/23 08/23/24 Allergies Allergy/AdvReac Type Severity Reaction Status Date / Time Sulfa (Sulfonamide Allergy Intermediate Hives Verified 08/23/24 17:03 Antibiotics) cat dander AdvReac Mild Itching Uncoded 08/23/24 17:03 General Stated Complaint: Vascular PHILIP: 3 Exam Narrative Exam Narrative: Review of Systems: All systems reviewed & are unremarkable except as noted in HPI and below Well-developed, no acute distress NCAT RRR Unlabored respiratory effort Extremities w/o edema Bilateral legs examined, there is no overlying skin change or erythema, no calf swelling or tenderness, she endorses tenderness to light palpation along the medial distal thigh on bilateral legs Course Vital Signs Vital signs: Vital Signs Temperature 36.5 C 08/23/24 16:54 Pulse 79 08/23/24 16:54 Respiratory Rate 12 08/23/24 16:54 Blood Pressure 138/72 08/23/24 16:54 Pulse Oximetry 99 08/23/24 16:54 Temperature 36.6 C 08/23/24 17:56 Temperature Source Oral 08/23/24 16:54 Pulse 78 08/23/24 17:56 Respiratory Rate 16 08/23/24 17:56 Respiratory Effort Normal, Non-Labored 08/23/24 17:30 Respiratory Depth Normal 08/23/24 17:30 Respiratory Pattern Normal 08/23/24 17:30 Blood Pressure 146/66 H 08/23/24 17:56 Blood Pressure Position Sitting 08/23/24 16:54 Pulse Oximetry 98 08/23/24 17:56 Oxygen Delivery Method Room Air 08/23/24 16:54 Oxygen Flow Rate 0 08/23/24 16:54 Pain Level 5 08/23/24 17:56 Medical Decision Making Evaluation of bilateral leg pain. She reports that initially she was having pain in her left medial distal thigh, but then since she is arrived she has noticed that she is also having pain in her right side of her thigh. There is no posterior pain, no calf tenderness or swelling. I have a very low suspicion for a DVT as her physical examination is not consistent with that and she does not have any risk factors for predisposition. Her superficial tenderness makes me think of possible thrombophlebitis or just irritation from where her legs touch each other. Particularly if she was just at the beach in [facility] maybe her wet thighs and sand could have caused some irritation. I recommend warm compress and NSAIDs for pain. I have ordered an outpatient ultrasound as there does not able to obtain 1 emergently this evening. If her symptoms are improved, there is no need for an outpatient ultrasound, but she is still continuing to have symptoms or any worsening, she can come for the outpatient [place] ultrasound. Quality:SDOH Health Related Social Needs: No Data to Display PFSH All Active Problems (Updated 08/23/24 @ 17:50 by Janett Sarkar MD) Leg pain (Acute) Family history of breast cancer (Acute) Post-menopausal bleeding (Acute) HPV (human papilloma virus) infection (Acute) Well woman exam with routine gynecological exam (Acute) GERD (gastroesophageal reflux disease) (Chronic) Perioral dermatitis (Acute) Thoracic back pain (Acute) Acute back pain with sciatica (Acute) Screening for colon cancer (Acute) Internal derangement of left knee (Acute) Osteoarthritis of left knee (Acute) Depo Medrol 10/28/21 Glomus tumor (Acute) Mitral valve regurgitation (Chronic) Cervicalgia (Acute) Atypical chest pain (Acute) History of gastroesophageal reflux (GERD) (Acute) History of depression (Acute) Medical History ADD (attention deficit disorder) Alcohol abuse, in remission Chronic pain of left knee Cold sore History of alcoholism Recurrent major depression Sleep apnea Surgical History Foot fracture, right History of History of esophagogastroduodenoscopy (EGD) Status post colonoscopy Family History Father Heart disease Mother Hypertension Hyperlipidemia Osteoporosis Maternal Aunt Breast cancer 3 maternal aunts Maternal Aunt Ovarian cancer Mat Great aunt Paternal Grandfather Colon cancer Social History (Updated 11/17/23 @ 14:08 by Abbie Pitt) Smoking/Tobacco Use Status: Former Tobacco Use Quit Date: 06/08/08 Tobacco: How many years used: 12 Quit status: has quit before Second Hand Exposure: Yes Smoking risk assessment performed?: Yes Alcohol Intake: current Alcohol Intake frequency: a few times a week Details: Former history of alcoholism. Previously drank 2-3 bottles of wine per day Drug use: Never Substance use type: does not use Number of Children: 2 current occupation: teacher Current gender identity: female What is your relationship status?: Panel score (0-1 are the most socially isolated patients): 0 What type of physical activity do you participate in: none Do you feel safe at home: Yes Additional Social history: lives alone Female Reproductive History Menstrual control method: none History History 3 Para 1 Hx # Term Pregnancies 1 Multiple births Hx # Pregnancies Ectopic pregnancies AB induced Hx Number of Living Children 2 AB spontaneous 2 PAWSS Have you Been Recently Intoxicated or Drunk Within the Last 30 days?: No Have you Ever Experienced Previous Episodes of Alcohol Withdrawal?: No Have you ever Experienced Withdrawal Seizures?: No Have you ever Experienced Delirium Tremens(DT)s?: No Have you ever undergone Alcohol Rehabilitation Treatment (i.e, inpt ot outpatient treatment programs)?: No Have you ever Experienced Blackouts?: No Have you ever Combined Alcohol with other Downers within the last 90 days?: No Have you ever Combined Alcohol with any other Substance of Abuse during the last 90 days?: No Positive Blood Alcohol level on Presentation? [PCS.BAL]: No Evidence of Increased Autonomic Activity (i.e. HR>120, tremor, sweating, agitation, nausea)?: No Result: 0
--- NOTE | 2024-09-26 11:09 | NUR.NOTE ---
@ 1050 on 09/26/24 diagnostic imaging called to notify us they have tried calling the patient to schedule outpatient ultrasound ordered by ER provider, they have tried to reach the pt four different times with no answer or returned phone call. DI is cancelling the order at this time. Nursing Note:
== END 2024-08-23 17:56 | disposition home or self-care (01) ==
PROVIDERS: Emergency Provider Emergency Medicine; PCP Student in an Organized Health Care Education/Training Program
DX: M79.605 Pain in left leg (principal)
CPT/HCPCS: 99282; 99283

== ENCOUNTER 2025-02-14 11:37 | Outpatient (CLI) | payer OTHER, SELFPAY ==
--- NOTE | 2025-02-14 07:00 | DI.MAMMO_ITS ---
Exam(s) MAMMO SCREENING EXAM: MAMMO SCREENING CLINICAL HISTORY: screening,z12.39 TECHNIQUE: Mammograms were interpreted according to the usual protocol including computer analysis with CAD system, tomosynthesis and C-view imaging. COMPARISON: 2014 through 2023 FINDINGS: The breasts are composed of mainly fatty density , Breast Density category A. No suspicious masses or suspicious microcalcifications are seen. No skin thickening or abnormal axillary lymph nodes are seen. There has been no significant change from prior exams. IMPRESSION: BI-RADS Category 1, Negative mammogram Yearly screening mammography is recommended. Breast Density- Category A - The breast are almost entirely fatty. Breast density Category C or D implies that the patient has dense breast tissue. Dense breast tissue can make it harder to find cancer on a mammogram. Dense breast tissue is also associated with an increased risk of breast cancer. This information about the result of the mammogram report was provided to the patient to raise their awareness. Use this report when you speak with the patient about their risks for breast cancer, which includes their family history. At that time, you may recommend additional screening tests (Ultrasound or MRI) as these tests may add significant information. A negative radiographic report should not delay biopsy if a dominant or clinically suspicious mass is present. Up to ten percent of cancers are not identified on mammography. A negative report may reinforce clinical impression. Adenosis and dense breasts may obscure an underlying neoplasm. False positive reports average 6 to 10%. Patient will receive a letter notifying them of these results.
== END 2025-02-14 11:57 ==
LOC: DI 11:37
PROVIDERS: PCP Student in an Organized Health Care Education/Training Program; Visit Provider Obstetrics & Gynecology
DX: Z12.31 Encounter for screening mammogram for malignant neoplasm of breast (principal); R92.313 Mammographic fatty tissue density, bilateral breasts
CPT/HCPCS: 77063; 77067

== ENCOUNTER 2025-04-11 16:58 | Outpatient (REF) | payer OTHER, SELFPAY ==
[2025-04-11 19:24] LABS: HCT 40.4 % (36.0-46.0); HGB 13.8 g/dL (11.2-15.7); MCH 30.7 pg (27.0-33.0); MCHC 34.2 % (32.0-36.0); MCV 90 fL (80-95); MPV 10.7 fL (8.0-11.0); Platelet Count 225 10^3/uL (130-400); RBC 4.50 10^6/uL (3.93-5.22); RDW 13.2 % (11.7-14.6); RDW-SD 43.6 fL; WBC 6.25 10^3/uL (4.4-10.8)
[2025-04-11 19:38] LABS: Hemoglobin A1C 5.3 % (<5.7)
[2025-04-11 19:41] LABS: ALT 24 U/L (14-59); AST 25 U/L (15-37); Albumin 4.2 g/dL (3.4-5.0); Alkaline Phosphatase 74 U/L (46-116); Anion Gap 10.4 mmol/L (3-11); BUN 13 mg/dL (7-18); Bilirubin, Total 0.8 mg/dL (0.2-1.0); CO2 26.6 mmol/L (21.0-32.0); Calcium 9.5 mg/dL (8.5-10.1); Chloride 101 mmol/L (98-107); Cholesterol 202 mg/dL (<200); Glucose 80 mg/dL (74-106); HDL Cholesterol 94 mg/dL (>or=50); Potassium 3.8 mmol/L (3.5-5.1); Sodium 138 mmol/L (136-145); Total Protein 7.5 g/dL (6.4-8.2)
== END 2025-04-11 16:59 | disposition home or self-care (01) ==
LOC: NCHCN 16:58
PROVIDERS: PCP Student in an Organized Health Care Education/Training Program
DX: Z00.00 Encounter for general adult medical examination without abnormal findings (principal); Z13.1 Encounter for screening for diabetes mellitus; Z13.6 Encounter for screening for cardiovascular disorders
CPT/HCPCS: 80053; 80061; 85027; 83036